=== PATIENT | female | born 2000 | race Caucasian/White ===

== ENCOUNTER 2024-11-25 09:20 | Outpatient (OUT) | payer BC, SELFPAY ==
--- OUTSIDE RECORDS SUMMARY | 2024-11-25 09:27 | XMS_ITS | Clinical Summary ---
Author Organization [facility] Address [address] [place] [address] Phone Care Team Providers Care Director Online Marketing Name Role Phone Unavailable Primary Care Provider Unavailabl e Social History Tobacco Use Types Packs/Day Years Used Date Smoking Tobacco: Never Assessed Comments Unknown Sex and Gender Information Value Date Recorded Sex Assigned at Not on file Legal Sex Female 6:27 PM EST Gender Identity Not on file Sexual Orientation Not on file Last Filed Vital Signs Vital Sign Reading Time Taken Comments Blood Pressure - - Pulse - - Temperature - - Respiratory Rate - - Oxygen Saturation - - Inhaled Oxygen Concentration - - Weight 54.4 kg (120 lb) 03/11/2020 9:07 AM EDT Height 162.6 cm (5' 4 ) 03/11/2020 9:07 AM EDT Body Mass Index 20.6 03/11/2020 9:07 AM EDT Plan of Treatment Not on file
--- OUTSIDE RECORDS SUMMARY | 2024-11-25 09:27 | XMS_ITS | Encounter Summary ---
Author Organization [facility] Address [address] [place] [address] Care Team Providers Care Pigment Pumper Name Role Phone Unavailable Primary Care Provider Unavailabl e Encounter Details Date Type Department Care Team (Late st Contact Info) Description 11/11/2024 Abstract [facility] [address] [facility] [phone] Jean-Pierre Alvarado [address] [place], [facility]11 Social History Tobacco Use Types Packs/Day Years Used Date Smoking Tobacco: Unknown Comments Unknown Sex and Gender Information Value Date Recorded Sex Assigned at Female 10/18/2022 1:41 PM EDT Legal Sex Female 7:24 PM EDT Gender Identity Female 10/18/2022 1:41 PM EDT Sexual Orientation Straight 10/18/2022 1: 41 PM EDT documented as of this encounter Plan of Treatment Upcoming Encounters Date Type Department Care Team (Late st Contact Info) Description 11/25/2024 10:00 AM EDT Initial [facility] [address] [facility] [place] [address] 10/21/2025 8:30 AM EDT Office Visit [facility] [address] [place] [phone] Mckenna Carlin MD [address] [place], [place] [phone] documented as of this encounter Visit Diagnoses Not on filedocumented in this encounter
--- OUTSIDE RECORDS SUMMARY | 2024-11-25 09:27 | XMS_ITS | Clinical Summary ---
Author Organization [facility] Address [address] [facility] [place] [address] Care Team Providers Care Installation Specialist Name Role Phone Unavailable Primary Care Provider Unavailabl e Allergies Active Allergy Reactions Criticality Noted Date Comments Amoxicillin-Pot Clavulanate Nausea Only 024 Levalbuterol 08/26/2023 Other Reaction(s): Unknown Levalbuterol Hcl 08/26/2023 Other Reaction(s): Unknown Medications Azurette 0.15-0.02/0.01 MG (14/10) tablet Act tia dicyclomine (Bentyl) 5 mg split tablet 07/19/2023 Active Lexapro 20 MG tablet Active omeprazole (PriLOSEC) [address] capsule Active spironolactone (Aldactone) 100 MG tabletIndication s:Acne vulgaris Take 1 tablet, by mouth, once daily, 90 day supply 90 tablet 3 10/20/2024 Active Active Problems No known active problems Encounters Date Type Department Care Team Description 11/11/2024 Abstract [facility] [address] [facility] [place] [address] Jean-Pierre Alvarado DO 11/11/2024 Orders Only [facility] [address] [facility] [place] [address] Jean-Pierre Alvarado DO Positive urine test ([facility]); Missed menses 10/20/2024 2:50 PM EDT Office Visit [facility] [address] [facility] [address] [facility] [place] [phone] Mckenna Carlin MD Acne vulgaris 10/20/2024 Bamboo flowsheet [facility] [address] [place] [address] Mckenna Carlin MD 10/20/2024 Travel 09/21/2024 Telephone [facility] [address] [place] [address] Angeles Mansfield MA from Last 3 Months Social History Tobacco Use Types Packs/Day Years Used Date Smoking Tobacco: Unknown Tobacco Cessation:Counseling Given: Not Answered Comments Unknown Sex and Gender Information Value Date Recorded Sex Assigned at Female 10/18/2022 1:41 PM EDT Legal Sex Female 7:24 PM EDT Gender Identity Female 10/18/2022 1:41 PM EDT Sexual Orientation Straight 10/18/2022 1: 41 PM EDT Last Filed Vital Signs Vital Sign Reading Time Taken Comments Blood Pressure 100/64 10/08/2022 12:00 PM EDT Pulse - - Temperature - - Respiratory Rate - - Oxygen Saturation - - Inhaled Oxygen Concentration - - Weight 68 kg (150 lb) 10/08/2022 12:00 PM EDT Height 166.4 cm (5' 5.5 ) 10/08/2022 12:00 PM ED T Body Mass Index 24.58 10/08/2022 12:00 PM EDT Plan of Treatment Upcoming Encounters Date Type Department Care Team (Late st Contact Info) Description 11/25/2024 10:00 AM EDT Initial [facility] [address] [place] [address] [place] [address] 10/21/2025 8:30 AM EDT Office Visit [facility] [address] [place] [address] Mckenna Carlin MD [address] [place] [address] Health Maintenance Due Date Last Done Comments Influenza Vaccine (#1) 2025 03/19/2023, 2021, 04/07/2021 Insurance [facility] [place]ICAID [place]
--- OUTSIDE RECORDS SUMMARY | 2024-11-25 09:27 | XMS_ITS | Encounter Summary ---
Author Organization [facility] Address [address] [place] [address] Care Team Providers Care Court Crier Name Role Phone Unavailable Primary Care Provider Unavailabl e Encounter Details Date Type Department Care Team (Late st Contact Info) Description 11/11/2024 Orders Only [facility] [address] [facility] [place] [address] Jean-Pierre Alvarado, DO [address] [facility] [address] [place], [facility]11 Positive urine test ([facility]); Missed menses Social History Tobacco Use Types Packs/Day Years Used Date Smoking Tobacco: Unknown Comments Unknown Sex and Gender Information Value Date Recorded Sex Assigned at Female 10/18/2022 1:41 PM EDT Legal Sex Female 7:24 PM EDT Gender Identity Female 10/18/2022 1:41 PM EDT Sexual Orientation Straight 10/18/2022 1: 41 PM EDT documented as of this encounter Progress Notes * Cait Holliday LPN - 11/11/2024 9:42 AM EDT 0942am Called patient and notified her of US appointment that is scheduled for 11/25/24 @ 9:30am. Orders faxed to [facility] scheduling. Cait Holliday LPN documented in this encounter Plan of Treatment Upcoming Encounters Date Type Department Care Team (Late st Contact Info) Description 11/25/2024 10:00 AM EDT Initial [facility] [address] [place] [address] [place] [address] 10/21/2025 8:30 AM EDT Office Visit [facility] [address] [facility] [address] [place] [address] Mckenna Carlin MD [address] [address] Scheduled Orders Name Type Priority Associated Diagnoses Orde r Schedule US OB transvaginal Imaging Routine Positive urine test ([facility]) Missed menses Expected: 11/11/2024, Expires: 02/11/2025 documented as of this encounter Visit Diagnoses Diagnosis Positive urine test ([facility]) Missed menses documented in this encounter
--- NOTE | 2024-11-25 09:29 | US_ITS ---
The [address] [address] Patient Name: VIJAY POE MRN: [id number] date: 2000 Sex: F Assigned Patient Location: Current Patient Location: Accession/Order Number: [id number] Exam Date: 11/25/2024 11:00 Report Date: 11/25/2024 11:03 At the request of: ROBBI DUARTE DO Procedure: US OB transvaginal ULTRASOUND OB TRANSVAGINAL CLINICAL DATA: Positive urine test. COMPARISON: None Evaluation was performed utilizing a transvaginal approach. There is a gestational sac within the uterus. This contains a yolk sac and pole. The crown-rump length measurement of 1.5 cm correlates with an ultrasound age of 7 weeks 6 days +/- 0 weeks 5 days. The estimated date of delivery is July 08, 2025. There is cardiac activity with heart rate of 161 bpm. The cervix is closed with estimated length of 3.7 cm. Both ovaries are seen. The right measures 2.3 x 2.5 x 2.3 cm . The left ovary measures 1.1 x 1.3 x 1.5 cm. A corpus luteum is seen within the right ovary measuring approximately 12 x 12 x 6 mm in size. There are also small bilateral ovarian follicles. There is documentation of ovarian blood flow. No free fluid is noted. US/US OB transvaginal IMPRESSION: SINGLE LIVE INTRAUTERINE GESTATION WITH ULTRASOUND AGE OF 7 WEEKS 6 DAYS Impression dictated by: Shavon Forbes M.D. 11/25/2024 11:03 AM Dictation Location: [place] [address] Electronically authenticated by: [id number] Y Date: 11/25/2024 11:03
== END 2024-11-25 09:21 | disposition home or self-care (01) ==
LOC: US 09:25
PROVIDERS: PCP Student in an Organized Health Care Education/Training Program; Visit Provider Obstetrics & Gynecology
DX: Z32.01 Encounter for pregnancy test, result positive (principal); Z3A.01 Less than 8 weeks gestation of pregnancy
CPT/HCPCS: 76817

== ENCOUNTER 2024-12-07 16:56 | Outpatient (OUT) | payer BC, SELFPAY ==
[2024-12-07 17:20] LABS: Hematocrit 37.5 % (36.0-48.0); Hemoglobin 13.2 g/dL (12.0-16.0); Immature Granulocytes Abs Auto 0.03 10^3/uL (0.00-0.03); Immature Granulocytes Pct Auto 0.2 % (0.0-0.5); Lymphocytes Absolute Auto 3.2 10^3/uL (1.2-3.8); Mean Corpuscular HGB Conc 35.2 g/dL (29.9-35.2); Mean Corpuscular Hemoglobin 29.4 pg (26.7-34.0); Mean Corpuscular Volume 83.5 fL (81.0-99.0); Platelet Count 309 10^3/uL (150-450); Red Blood Count 4.49 10^6/uL (4.20-5.40); White Blood Count 12.7 10^3/uL (4.0-11.0)
[2024-12-07 18:02] LABS: Cannabinoid Screen Urine NEGATIVE (NEGATIVE); Methamphetamines Screen Urine NEGATIVE (NEGATIVE); Tricyclic Antidepressant Urine NEGATIVE (NEGATIVE)
[2024-12-09 08:08] LABS: Rubella Antibodies, IgG 1.45 index (Immune >0.99)
[2024-12-09 12:09] LABS: Rapid Plasma Reagin, Quant Non Reactive titer (NonRea<1:1)
== END 2024-12-07 16:57 | disposition home or self-care (01) ==
PROVIDERS: PCP Student in an Organized Health Care Education/Training Program; Visit Provider Obstetrics & Gynecology
DX: Z34.01 Encounter for supervision of normal first pregnancy, first trimester (principal); N92.6 Irregular menstruation, unspecified
CPT/HCPCS: 36415; 80307; 83036; 85025; 86592; 86762; 86803; 86850; 86900; 86901; 87086; 87340; 87389

== ENCOUNTER 2024-12-31 12:50 | Outpatient (OUT) | payer BC, OTHER, SELFPAY ==
--- NOTE | 2024-12-31 12:52 | US_ITS ---
[address] [address] Patient Name: VIJAY POE MRN: [id number] date: 2000 Sex: F Assigned Patient Location: US Current Patient Location: Accession/Order Number: [id number] Exam Date: 12/31/2024 13:48 Report Date: 12/31/2024 13:52 At the request of: ROBBI DUARTE DO Procedure: US OB cervical length Cervical length/placenta ultrasound. Reason for exam: Low lying placenta, vaginal bleeding. COMPARISON: Ultrasound 11/25/2024. TECHNIQUE: Transabdominal imaging of the gravid uterus was obtained. FINDINGS: Cervical length measures 4 cm no evidence of funneling. Placenta is posterior in location with a presumed placental luna present measuring 3.3 x 2.1 x 0.7 cm. Placenta is approximately 1.1 cm from the internal os. heart rate 1 59 bpm. US/US OB cervical length IMPRESSION: Cervical length measures 4 cm. no evidence of funneling. The placenta is posterior in location and approximately 1.1 cm from internal os. There is a presumed placental luna noted. Attention on follow-up is suggested. Impression dictated by: Niranjan Abraham Jr., D.O. 12/31/2024 1:52 PM Dictation Location: [employer] Electronically authenticated by: [id number] Y Date: 12/31/2024 13:52
--- NOTE | 2024-12-31 12:52 | US_ITS ---
[address] [address] Patient Name: VIJAY POE MRN: [id number] date: 2000 Sex: F Assigned Patient Location: US Current Patient Location: Accession/Order Number: [id number] Exam Date: 12/31/2024 13:48 Report Date: 12/31/2024 13:52 At the request of: ROBBI DUARTE DO Procedure: US OB cervical length Cervical length/placenta ultrasound. Reason for exam: Low lying placenta, vaginal bleeding. COMPARISON: Ultrasound 11/25/2024. TECHNIQUE: Transabdominal imaging of the gravid uterus was obtained. FINDINGS: Cervical length measures 4 cm no evidence of funneling. Placenta is posterior in location with a presumed placental luna present measuring 3.3 x 2.1 x 0.7 cm. Placenta is approximately 1.1 cm from the internal os. heart rate 1 59 bpm. US/US OB placenta IMPRESSION: Cervical length measures 4 cm. no evidence of funneling. The placenta is posterior in location and approximately 1.1 cm from internal os. There is a presumed placental luna noted. Attention on follow-up is suggested. Impression dictated by: Niranjan Abraham Jr., D.O. 12/31/2024 1:52 PM Dictation Location: [employer] Electronically authenticated by: [id number] Y Date: 12/31/2024 13:52
== END 2024-12-31 12:51 | disposition home or self-care (01) ==
LOC: US 12:50
PROVIDERS: PCP Student in an Organized Health Care Education/Training Program; Visit Provider Obstetrics & Gynecology
DX: O44.41 Low lying placenta NOS or without hemorrhage, first trimester (principal); O20.9 Hemorrhage in early pregnancy, unspecified
CPT/HCPCS: 76815; 76817

== ENCOUNTER 2025-02-16 19:30 | Outpatient (REF) | payer BC, OTHER, SELFPAY ==
[2025-02-23 12:08] LABS: Age Gdln ACOG Testing Note (.); IGP, rfx Aptima HPV ASCU Note (.)
== END 2025-02-16 19:31 | disposition home or self-care (01) ==
LOC: LAB 19:30
PROVIDERS: PCP Student in an Organized Health Care Education/Training Program; Visit Provider Obstetrics & Gynecology
DX: Z34.92 Encounter for supervision of normal pregnancy, unspecified, second trimester (principal); Z3A.19 19 weeks gestation of pregnancy
CPT/HCPCS: 88175

== ENCOUNTER 2025-02-26 09:37 | Outpatient (OUT) | payer BC, OTHER, SELFPAY | END 2025-02-26 09:38 | disposition home or self-care (01) | PROVIDERS: PCP Student in an Organized Health Care Education/Training Program; Visit Provider Obstetrics & Gynecology | DX: Z34.92 Encounter for supervision of normal pregnancy, unspecified, second trimester (principal); Z3A.19 19 weeks gestation of pregnancy | CPT/HCPCS: 36415; 82105 ==

== ENCOUNTER 2025-04-09 09:03 | Outpatient (OUT) | payer BC, OTHER, SELFPAY ==
--- OUTSIDE RECORDS SUMMARY | 2023-06-14 04:15 | XMS_ITS | Continuity of Care Document ---
Author Organization [facility] Address [address] [place] [address] Phone Care Team Providers Care Mark Up Designer Name Role Phone James Fritz Unavailable Unavailable Procedures Procedure Date IMMUNIZATION ADMIN CHICKEN POX VACCINE, SC IMMUNIZATION ADMIN CHICKEN POX VACCINE, SC IMMUNIZATION ADMIN FLU VAC NO PRSV 4 HYUN 3 YRS+ ROUTINE VENIPUNCTURE COVID-19 Antigen Test ROUTINE VENIPUNCTURE ROUTINE VENIPUNCTURE Advance Directives Directive Yes / No Effective Date File Name No Information Encounters Encounter Description Practice Location Reason(s) For Visit Diagnoses Date Provider Providers Copied on Encounter [facility], [address] [place] [address], [id number], [place] tel:[phone] [facility] No Information Warren Grady. [address] [place], [place], [id number], [place]. tel:[phone] [facility], [address] [place] [address], [id number], [place] tel:[phone] [facility] No Information Warren Grady. [address] [place], [place], [id number], [place]. tel:[phone] [facility], [address] [place] [address], [id number], [place] tel:[phone] [facility] No Information Warren Grady. [address] [place], [place], [id number], [place]. tel:[phone] [facility], [address] [place], [place], [id number], [place] tel:[phone] [facility] Lab draw (chief complaint) No Information Warren Grady. [address] [place], [place], [id number], [place]. tel:[phone] [facility], [address] [place], [place], [id number], [place] tel:[phone] COVID [facility] Encounter for screening for COVID-19 Warren Grady. [address] [place], [place], [id number], [place]. tel:[phone] [facility], [address], [place], [id number], [place] tel:[phone] [facility] Lab draw (chief complaint) Encounter for antibody response examination Warren Grady. [address], [place], [id number], [place]. tel:[phone] [facility], [address], [place], [id number], [place] tel:[phone] [facility] lab test (chief complaint) Encounter for screening for respiratory tuberculosis Warren Grady. [address], [place], [id number], [place]. tel:[phone] Family History Family Member Type Diagnosis Age At Onset No Information Immunizations Vaccine Date Status Comments Varicella administered Source: New Imm unization Record Varicella administered Source: New Imm unization Record Spikevax 12y+ refused Source: New Im munization Record Flulaval/ Fluarix administered Source: Ne w Immunization Record Tdap administered Source: Other R egistry influenza, injectable, quadrivalent administered Source: Other Regist ry influenza, injectable, quadrivalent administered Source: Other Regist ry IPV administered Source: Other R egistry DTaP administered Source: Other R egistry MMR administered Source: Other R egistry MMR administered Source: Other R egistry Hib (PRP-T) administered Source: Other R egistry DTaP administered Source: Other R egistry varicella administered Source: Other R egistry Pneumococcal conjugate PCV 13 administere d Source: Other Registry IPV administered Source: Other R egistry Hib, unspecified formulation administered Source: Other Registry DTaP, unspecified formulation administere d Source: Other Registry pneumococcal conjugate PCV 7 administered Source: Other Registry IPV administered Source: Other R egistry Hib, unspecified formulation administered Source: Other Registry Hep B, adolescent or pediatric administer ed Source: Other Registry DTaP, unspecified formulation administere d Source: Other Registry pneumococcal conjugate PCV 7 administered Source: Other Registry IPV administered Source: Other R egistry Hib (PRP-OMP) administered Source: Other Registry Hep B, adolescent or pediatric administer ed Source: Other Registry DTaP, unspecified formulation administere d Source: Other Registry pneumococcal conjugate PCV 7 administered Source: Other Registry Hep B, adolescent or pediatric administer ed Source: Other Registry Payers Payer name Insurance type Covered libertarian ID Authoriza tikoyd(s) Gonzalez BL [id number] Gonzalez BL [id number] Gonzalez BL [id number] Gonzalez BL [id number] Social History Type Description Quantity Date Captured Comments Alcohol Use Details Unknown Caffeine Use Details Unknown Tobacco Use Status No Information Smoking Status No Information Sex Female Sexual Orientation Straight or heterosexual Gender Identity Female Chief Complaint And Reason For Visit No Information Reason For Referral Reason For Referral No Information Plan Of Treatment Date Type Action Status Goal Unhealthy drug use screening . Due on due Goal PAP. Due on due Goal Tdap Vaccine. Due on 2032 due Goal Influenza vaccine. Due on due Goal PRAPARE ASSESSMENT. Due on due Goal Hep A. Due on du e Goal Tdap due Goal Depression screening. Due on due Goal RLP. Due on due Goal Hepatitis C screening. Due o n due Goal Influenza vaccine. Due on due Goal Unhealthy drug use screening . Due on due Goal Tdap. Due on due Goal Hepatitis C screening. Due o n due Goal Hep A. Due on du e Goal Depression screening. Due on due Goal PRAPARE ASSESSMENT. Due on due Goal RLP. Due on due Goal Tdap Vaccine. Due on 2022 due Goal Unhealthy drug use screening . Due on due Goal Tdap. Due on due Goal RLP. Due on due Goal Influenza vaccine. Due on Oc due Goal Tdap Vaccine. Due on 2022 due Goal Hepatitis C screening. Due o n due Goal Depression screening. Due on due Goal PRAPARE ASSESSMENT. Due on O due Goal Hep A. Due on du e Goal Hep A. Due on du e Goal Influenza vaccine. Due on Oc due Goal Tdap Vaccine. Due on 2022 due Goal Hepatitis C screening. Due o n due Goal Tdap. Due on due Goal PRAPARE ASSESSMENT. Due on O due Goal Unhealthy drug use screening . Due on due Goal RLP. Due on due Goal Depression screening. Due on due Goal Tdap Vaccine. Due on 2022 due Goal Tdap. Due on due Goal RLP. Due on due Goal Hep A. Due on du e Goal PRAPARE ASSESSMENT. Due on O due Goal Unhealthy drug use screening . Due on due Goal Depression screening. Due on due Goal Hepatitis C screening. Due o n due Goal Influenza vaccine. Due on Oc due Goal Depression screening. Due on due Goal Tdap Vaccine. Due on 2022 due Goal Hep A. Due on du e Goal Tdap. Due on due Goal Influenza vaccine. Due on Se p due Goal PRAPARE ASSESSMENT. Due on S due Goal RLP. Due on due Goal Hep A. Due on du e Goal Influenza vaccine. Due on Ma r due Goal PRAPARE ASSESSMENT. Due on M due Goal Tdap Vaccine. Due on 2022 due Goal RLP. Due on due Goal Tdap. Due on due Goal Depression screening. Due on due History Of Present Illness Encounter Date Complaint History Of Prese nt Illness Lab draw Labs drawn x1 RA C. 2x2 and bandage applied. //KARIN Mathur Lab draw Labs drawn x1 RA C. 2x2 and bandage applied. //KARIN Mathur lab test Pt here today fo r employee TB test. Labs obtained successfully x1 attempt in R AC. Pt tolerated well, voices no complaints at this time. -Helio. Functional Status Date Functional Assessmen t No Information Instructions Date Instruction Additional Infor mation No Information Assessments Type Assessment Date No Information Patient Care Teams Name Effective Dates (start - stop) Status Members No Information
--- OUTSIDE RECORDS SUMMARY | 2025-04-09 09:07 | XMS_ITS | Encounter Summary ---
Author Organization [facility] Address [address] [place] [place] [address] Care Team Providers Care Foot Orthopedist Name Role Phone Unavailable Primary Care Provider Unavailabl e Encounter Details DateTypeDepartmentCare Team (Latest Contact Info)Bfheqkhzlut74/11/2025bstract JORDON STRATTON [address] [facility] [address] Oanh Vasquez MA Social History Tobacco UseTypesPacks/DayYears UsedDateSmoking Tobacco: UnknownEstimated Date of AepzyanoEwunmyydDte63/12/2026Based on Ultrasound, HR 161Sex and Gender InformationValueDate RecordedSex Assigned at WltwrOfmjvt30/25/2023 1:41 PM EDT Legal MhkYkqunc11/15/2023 7:24 PM EDTGender SjuyqyjzArahcw96/25/2023 1:41 PM EDT Sexual MbqaakfjifkNyiyyhua66/25/2023 1:41 PM EDTdocumented as of this encounter Plan of Treatment DateTypeDepartmentCare Team (Latest Contact Info)Wczwbmbixxe33/24/2025 2:10 PM ESTRoutine [facility] [address] [facility] [address] Jean-Pierre Alvarado DO [address] [facility] [address] [place], [place] [id number] 10/21/2025 8:30 AM EDTOffice Visit [facility] [address] [place] [address] [place] [address] Mckenna Carlin MD [address] [facility] [address] [place] [address] documented as of this encounter Visit Diagnoses Not on filedocumented in this encounter
--- OUTSIDE RECORDS SUMMARY | 2025-04-09 09:07 | XMS_ITS | Clinical Summary ---
Author Organization [facility] Address [address] [place] [address] Phone Care Team Providers Care Embalmer/Funeral Director Name Role Phone Unavailable Primary Care Provider Unavailabl e Social History Tobacco UseTypesPacks/DayYears UsedDateSmoking Tobacco: Never Assessed CommentsUnknownSex and Gender InformationValueDate RecordedSex Assigned at Not on fileLegal QcgAmuxsp89/25/2022 6:27 PM ESTGender IdentityNot on fileSexual OrientationNot on file Last Filed Vital Signs Vital SignReadingTime TakenCommentsBlood Pressure--Pulse--Temperature-- Respiratory Rate--Oxygen Saturation--Inhaled Oxygen Concentration--Ipsjyn20.4 kg (120 lb)03/11/2020 9:07 AM KZRCkotbk947.6 cm (5' 4 )03/11/2020 9:07 AM EDTBody Mass Index20. 9:07 AM EDT Plan of Treatment Not on file
--- OUTSIDE RECORDS SUMMARY | 2025-04-09 09:07 | XMS_ITS ---
Author Organization [facility] (ClinicalSummary Clone) Address Unknown Care Team Providers Care Shoe Parts Molder Name Role Phone Unavailable Primary Care Physician Unavailab le Results * [UNITY] ANEUPLOIDY NIPT Performed by: [employer] Value Range Date Fraction 8.2% 12/14/2024 04:17 am UTCRh(D) NIPTRhD CCGFPTTL75/21/2025 04:17 am UTCSex Chromosome AneuploidyNOT OLQGKUOW52/21/2025 04:17 am UTCMonosomy XLOW RISK <1 in , 04:17 am UTCTrisomy 13LOW RISK <1 in , 04:17 am UTCTrisomy 18LOW RISK <1 in , 04:17 am UTCTrisomy 21LOW RISK <1 in , 04:17 am UTCFetal OynAYVW4012/14/2024 04:17 am UTCPregnancy ExbqgyugmORGNQAFJA12/21/2025 04:17 am UTCFor detailed report, see PDFSee PDF 12/14/2024 04:17 am UTC12/14/2024 04:17 am UTC Social History Observation Value Start Date End Date
--- OUTSIDE RECORDS SUMMARY | 2025-04-09 09:08 | XMS_ITS | Clinical Summary ---
Author Organization [employer] [facility] tem Address [facility] [id number] [address] [place] [address] Care Team Providers Care Accreditation Specialist Name Role Phone Unavailable Primary Care Provider Unavailabl e Allergies Active AllergyReactionsCriticalityNoted DateCommentsAmoxicillin-Pot Clavulanate Bfifib1312/31/20249388Wckabemdzvts66/07/2025Levalbuterol Hcl12/31/2024 Medications MedicationSigDispense QuantityRefillsLast FilledStart DateEnd DateStatus ondansetron ODT (ZOFRAN ODT) 4 mg disintegrating tablet Dissolve 1 tablet (4 mg total) on tongue every 8 (eight) hours as needed for nausea or vomiting.Active escitalopram (LEXAPRO) 20 mg tablet Take 1 tablet (20 mg total) by mouth in the morning.Active vit 50-pndr-sjqnc-dha 27mg iron- 800 mcg-250 mg capsule Take 1 tablet by mouth in the morning.Active metroNIDAZOLE (FLAGYL) 500 mg tablet Take 1 tablet (500 mg total) by mouth 3 (three) times a day.Active Encounters DateTypeDepartmentCare McwyPebvtfxtygr98/06/2025Orders Only [facility] [place] [address] 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, oimwrpkpag96/26/2025 11:00 AM EDTOffice Visit Maternal- Medicine at [facility] [address] [place] [address] Adeline Castrejon MD 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); History of MRSA infection; 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, antepartum; Anxiety disorder affecting , antepartum; 20 weeks gestation of cmqjrtkat94/26/2025 9:29 AM EDT - 02/19/2025 11:59 PM EDT Hospital Encounter [facility] - [facility] [address] [place] [phone] Screening, , for anatomic survey Discharge Disposition: Home02/19/2025Orders Only Maternal- Medicine at [facility] [address] [place] [phone] Meri Key LPN 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); 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, zzigzmcjrp66/24/2025Travelfrom Last 3 Months Family History Medical HistoryRelationNameCommentsCancerMaternal GrandmotherbreastAutismNeg Hx Autoimmune diseaseNeg HxBleeding DisorderNeg HxClotting disorderNeg Hx Developmental delayNeg HxDiabetesNeg HxDown syndromeNeg HxHeart defectNeg Hx HypertensionNeg HxSudden deathNeg HxRelationNameStatusCommentsMaternal Grandmother Social History Tobacco UseTypesPacks/DayYears UsedDateSmoking Tobacco: NeverPassive Smoke Exposure: CurrentSmokeless Tobacco: Never Tobacco Cessation:Counseling Given: Not Answered Alcohol UseStandard Drinks/WeekCommentsNot Currently0 (1 standard drink = 0.6 oz pure alcohol)Hunger ScreeningAnswerDate RecordedWithin the past 12 months we worried whether our food would run out before we got money to buy more.Never True02/19/2025Within the past 12 months the food we bought just didn't last and we didn't have money to get more.Never True02/19/2025Estimated Date of CgzxepgzIumgsxucMid46/12/2026ased on UltrasoundSex and Gender InformationValue Date RecordedSex Assigned at BirthNot on fileLegal ZtoKeexak52/05/2025 3:49 PM EDTGender IdentityNot on fileSexual OrientationNot on file Last Filed Vital Signs Vital SignReadingTime TakenCommentsBlood Ohjgujgp282/69002/19/2025 9:52 AM EDT Mbxhm016402/19/2025 9:52 AM EDTTemperature--Respiratory Rate--Oxygen Saturation-- Inhaled Oxygen Concentration--Ztgwre59 kg (176 lb 6.4 oz)02/19/2025 9:52 AM EDT Zaqpqy002.1 cm (5' 5 )02/19/2025 9:52 AM EDTBody Mass Index29.35002/19/2025 9:52 AM EDT Plan of Treatment DateTypeDepartmentCare Team (Latest Contact Info)Lceafbuviuh49/11/2025 2:15 PM ESTAppointment [facility] [place] [address] [facility] [address] [place] [address] Health MaintenanceDue DateLast DoneCommentsDepression Xivbpldte56/16/2014dult BMI Follow Up Plan2020COVID-19 Vaccine ( season)2025 08/05/2021, 07/08/2021Influenza Uvwombd36, 03/09/2022, 04/07/2021SV ( or age 60+ yrs) (1 - Risk 1-dose series) 05/13/2025dult BMI Gbgkqklrm37Tobacco Yopmwzktq28/26/2026 02/19/2025Pap Smear8002/16/2025DTaP,Tdap and Td Vaccines (7 - Td or Tdap)/10/2022, 09/17/2007, 09/26/2005, Additional history exists Medical Devices Not on file Procedures Procedure NamePriorityDate/TimeAssociated DiagnosisCommentsUS MFM OB FOLLOW-UP, 1 UEVPRIvkpgzg34/06/2025 3:06 PM EST 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 Anatomical RegionLateralityModalityOB-GYNUltrasoundSpecimen (Source)Anatomical Location / LateralityCollection Method / VolumeCollection TimeReceived Time 04/01/2025 3:14 PM EST Narrative 04/02/2025 3:27 PM EST NAME: ??LUI LINARES : 2000 SEX: F Accession Number: [id number] ORDERING PHYSICIAN: ADELINE CASTREJON REFERRING PHYSICIAN: ROBBI DUARTE Coding Procedures ? 32206: Ultrasound, uterus, real time with image documentation, follow up,transabdominal ? 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 History OB History ? 1. Para 0 ? [id number] Current Cell free DNA ?low risk analysis Maternal Assessment Physical Exam ??Height 165 cm, 5 ft 5 in. Weight 82 kg, 181 lb. Initial weight 80 kg, 176 lb. BMI 30.12 kg/m??. Initial ? BMI 29.29 kg/m??. Weight gain 2 kg, 5 lb Method Transabdominal ultrasound examination. View: Suboptimal view: limited by position. Baird . Number of fetuses: 1 Dating LMP on: ?09/25/2024 GA by LMP ?26 w + 6 d PETE by LMP: ?07/02/2025 Previous Ultrasound on: ?11/25/2024 Type of prior assessment: ?GA GA at prior assessment date ?7 w + 6 d GA by previous U/S ? 26 w + 0 d PETE by previous Ultrasound: ?07/08/2025 Ultrasound examination on: ? 04/01/2025 GA by U/S based upon: ??AC, BPD, Femur, HC GA by U/S ?26 w + 4 d PETE by U/S: ?07/04/2025 Assigned: ?based on ultrasound (GA), selected on 02/19/2025 Assigned GA (weeks days) ? 26 w + 0 d Assigned PETE: ??07/08/2025 General Evaluation Cardiac activity Present. FHR 141 bpm. Presentation: breech Placenta: Placental site: posterior, previously documented away from cervical os Umbilical cord: Cord vessels: 3 vessel cord. Insertion site: documented previously Amniotic fluid: Amount of AF: normal amount. MVP 4.1 cm Biometry Standard BPD ?63.4 mm 25w 5d 29% Hadlock OFD 94.4 mm 30w 3d >99% Mary HC ? 254.7 mm ?27w 5d 81% Hadlock Cerebellum tr ??29.2 mm 25w 4d 34% Hill AC ? 231.0 mm ?27w 3d 83% Hadlock Femur ??45.8 mm 25w 1d 15% Hadlock Humerus ?43.9 mm 26w 1d 48% Mary HC / AC ?1.10 EFW ?955 g ?64% Hadlock EFW (lb) ? 2 lb EFW (oz) ? 2 oz EFW by: ?Hadlock ([id number]-FX-FL) Extended Tibia ??42.6 mm 26w 3d 60% Mary Alarm Adjuster ? 4.1 mm CM ? 6.6 mm ?? 59% Nicolaides Head / Face / Neck Cephalic index 0.67 <1% Nicolaides Nasal bone: ?documented previously Extremities / Bony Struc FL / BPD ? 0.72 FL / HC ?0.18 FL / AC ?0.20 Other Structures FHR ?141 bpm Anatomy The following structures appear normal: Head/Neck: Cranium. Lateral ventricles. Cavum septi pellucidi. Cerebellum. Cisterna magna. Parenchyma. Heart/Thorax: 4-chamber view. RVOT view. LVOT view. Aortic arch view. Bicaval view. Interventricular septum. Great ? vessels. Cardiac position. Cardiac axis. Cardiac size. Cardiac rhythm. ? Right lung. Left lung. Diaphragm. Abdomen: Stomach. Kidneys. Bladder. Small bowel. Large bowel. Spine: Cervical spine. Thoracic spine. Lumbar spine. The following structures could not be adequately visualized: Heart / Thorax Ductal arch view. Spine ??Sacral spine. The following structures were documented previously: Head / Neck ?Choroid plexus. Midline falx. Vermis. ? Neck. Nuchal fold. Face: Lips. Profile. Nose. Nasal bone. Maxilla. Mandible. Orbits. Heart / Thorax 3-vessel view. 6-vxdyih-tlhryyz view. Situs. Abdomen ?Abdom. wall. Cord insertion. Right renal artery. Left renal artery. Genitals. Extremities/Skeleton: Right upper arm. Right forearm. Right hand. Left upper arm. Left forearm. Left hand. Right upper leg. ? Right lower leg. Right foot. Left upper leg. Left lower leg. Left foot. Maternal Structures Uterus Visualized Cervix Suboptimal ? Approach - Transabdominal Right Ovary ?Not visualized Left Ovary ? Not visualized Cul de Sac ? Suboptimal Impression Single live intrauterine consistent with 26w 0d with an PETE of 07/08/2025. Normal growth. EFW measures at the 64%, AC measures at the 83%. Amniotic fluid MVP measures 4.1 cm. Recommendations Please see [facility] recommendations from prior clinical and/or ultrasound report documentation. The patient is scheduled in four to six week(s) to complete anatomic survey. Subsequent follow up or other follow up as clinically determined by primary OB provider unless otherwise specified by M. Results forwarded to ordering provider so they can follow up with the patient as necessary. 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 History OB History 1. Para 0 [id number] Current Cell free DNA low risk analysis Maternal Assessment Physical Exam Height 165 cm, 5 ft 5 in. Weight 82 kg, 181 lb. Initialweight 80 kg, 176 lb. BMI 30.12 kg/m??. Initial BMI 29.29 kg/m??. Weight gain 2 kg, 5 lb Method Transabdominal ultrasound examination. View: Suboptimal view: limited byfetal position. Baird . Number of fetuses: 1 Dating LMP on: 09/25/2024 GA by LMP 26 w + 6 d PETE by LMP: 07/02/2025 Previous Ultrasound on: 11/25/2024 Type of prior assessment: GA GA at prior assessment date 7 w + 6 d GA by previous U/S 26 w + 0 d PETE by previous Ultrasound: 07/08/2025 Ultrasound examination on: 04/01/2025 GA by U/S based upon: AC, BPD, Femur, HC GA by U/S 26 w + 4 d PETE by U/S: 07/04/2025 Assigned: based on ultrasound (GA), selected on 02/19/2025 Assigned GA (weeks days) 26 w + 0 d Assigned PETE: 07/08/2025 General Evaluation Cardiac activity Present. FHR 141 bpm. Presentation: breech Placenta: Placental site: posterior, previously documented away fromcervical os Umbilical cord: Cord vessels: 3 vessel cord. Insertion site: documented previously Amniotic fluid: Amount of AF: normal amount. MVP 4.1 cm Biometry Standard BPD 63.4 mm 25w 5d 29% Hadlock OFD 94.4 mm 30w 3d >99% Mary HC 254.7 mm 27w 5d 81% Hadlock Cerebellum tr 29.2 mm 25w 4d 34% Hill AC 231.0 mm 27w 3d 83% Hadlock Femur 45.8 mm 25w 1d 15% Hadlock Humerus 43.9 mm 26w 1d 48% Mary HC / AC 1.10 EFW 955 g 64% Hadlock EFW (lb) 2 lb EFW (oz) 2 oz EFW by: Hadlock ([id number]-OG-ZH-FL) Extended Tibia 42.6 mm 26w 3d 60% Mary Alarm Adjuster 4.1 mm CM 6.6 mm 59% Nicolaides Head / Face / Neck Cephalic index 0.67 <1% Nicolaides Nasal bone: documented previously Extremities / Bony Struc FL / BPD 0.72 FL / HC 0.18 FL / AC 0.20 Other Structures FHR 141 bpm Anatomy The following structures appear normal: Head/Neck: Cranium. Lateral ventricles. Cavum septi pellucidi. Cerebellum. Cisterna magna. Parenchyma. Heart/Thorax: 4-chamber view. RVOT view. LVOT view. Aortic arch view.Bicaval view. Interventricular septum. Great vessels. Cardiac position. Cardiac axis. Cardiac size. Cardiacrhythm. Right lung. Left lung. Diaphragm. Abdomen: Stomach. Kidneys. Bladder. Small bowel. Large bowel. Spine: Cervical spine. Thoracic spine. Lumbar spine. The following structures could not be adequately visualized: Heart / Thorax Ductal arch view. Spine Sacral spine. The following structures were documented previously: Head / Neck Choroid plexus. Midline falx. Vermis. Neck. Nuchal fold. Face: Lips. Profile. Nose. Nasal bone. Maxilla. Mandible. Orbits. Heart / Thorax 3-vessel view. 7-gwqvlg-difksah view. Situs. Abdomen Abdom. wall. Cord insertion. Right renal artery. Left renalartery. Genitals. Extremities/Skeleton: Right upper arm. Right forearm. Right hand. Leftupper arm. Left forearm. Left hand. Right upper leg. Right lower leg. Right foot. Left upper leg. Left lower leg. Leftfoot. Maternal Structures Uterus Visualized Cervix Suboptimal Approach - Transabdominal Right Ovary Not visualized Left Ovary Not visualized Cul de Sac Suboptimal Impression Single live intrauterine consistent with 26w 0d with an PETE of 07/08/2025. Normal growth. EFW measures at the 64%, AC measures at the 83%. Amniotic fluid MVP measures 4.1 cm. Recommendations Please see [facility] recommendations from prior clinical and/or ultrasoundreport documentation. The patient is scheduled in four to six week(s) to complete anatomicsurvey. Subsequent follow up or other follow up as clinically determined byprimary OB provider unless otherwise specified by [facility]. Results forwarded to ordering provider so they can follow up with thepatient as necessary. Authorizing ProviderResult TypeResult StatusIra Cash ATWOODKriss US ORDERABLES Final Result * Unlisted Lab Test (02/19/2025)Specimen (Source)Anatomical Location / LateralityCollection Method / VolumeCollection TimeReceived TimeBlood (Arm) 02/19/2025 Narrative Authorizing ProviderResult TypeResult StatusAdeline ALLEN BLOOD ORDERABLES Final ResultPerforming OrganizationAddressCity/State/ZIP CodePhone Number MANUALLY TRANSCRIBED RESULTS from Last 3 Months Insurance
--- OUTSIDE RECORDS SUMMARY | 2025-04-09 09:08 | XMS_ITS | Clinical Summary ---
Author Organization [facility] Address [address] [place] [address] Care Team Providers Care Ager Tender Name Role Phone Unavailable Primary Care Provider Unavailabl e Allergies Active AllergyReactionsCriticalityNoted DateCommentsAmoxicillin-Pot Clavulanate Nausea Only08/26/20234858Dyglqdljqzbi90/01/2024 Xopenex Levalbuterol Hcl08/26/2023 Other Reaction(s): Unknown Medications MedicationSigDispense QuantityRefillsLast FilledStart DateEnd DateStatus Lexapro 20 MG tablet Active MV-Min-Fe Fum-FA-DHA ( 1 PO) Take by mouthActive clindamycin (Cleocin T) 1 % lotion Indications:Acne vulgarisApply thin layer to face, once daily in the morning, 30 day supply 60 mL 1105Active magnesium oxide (Mag-Ox) 400 MG tablet Indications:Leg cramps in ([facility])Take 1 tablet (400 mg) by mouth Daily 30 tablet 515Active ondansetron (Zofran) 4 MG tablet Indications:Nausea and vomiting in ([facility])Take 2 tablets (8 mg) by mouth every 6 (six) hours if needed for nausea or vomiting 60 tablet /51Expired Active Problems ProblemNoted DateDiagnosed Date19 weeks gestation of ([facility]) 02/16/2025Second trimester fetus ([facility])02/16/2025Estimated Date of OdjbohlrDfgfskywTdn66/12/2026ased on Ultrasound, HR 161 Encounters DateTypeDepartmentCare GqcjSnrsbwztfeo97/11/2025bstract [facility] [address] [place] [address] Oanh Vasquez MA 04/02/2025Orders Only [facility] [address] [facility] [id number] Korin Talbert, DO 03/22/2025Telephone [facility] [place] [address] [place] [address] Gunjan Lee MA 03/17/2025 11:30 AM EDTRoutine [facility] [address] [place] [address] Robbi Alvarado, DO 23 weeks gestation of ([facility]); Second trimester fetus ([facility]); Diabetes mellitus screening; Leg cramps in ([facility])03/17/2025amboo flowsheet [facility] [place] [address] [place] [address] Robbi Alvarado, DO 03/04/2025Orders Only [facility] [place] [facility] [address] [place] [address] Eunice Ramos LPN 02/26/2025linisync Result Encounter [facility] External Department Unsolicited Robbi Alvarado, DO 02/19/2025bstract [facility] [place] [facility] [address] [place] [address] Robbi Alvarado, DO 02/17/2025Telephone [facility] [place] [address] [place] [address] Robbi Alvarado, DO 02/16/2025 2:10 PM EDTRoutine [facility] [address] [place] [address] Robbi Alvarado, DO 19 weeks gestation of ([facility]); Second trimester fetus ([facility]); Screening, , for anatomic survey ([facility])02/16/2025linisync Result Encounter [facility] External Department Unsolicited Robbi Alvarado, 02/16/2025External Result Encounter [facility] External Department Unsolicited Robbi Alvarado, DO 02/16/2025amboo flowsheet [facility] [address] [place] [address] Robbi Alvarado, 02/15/2025Telephone [facility] [address] [place] [address] Robbi Alvarado, 02/05/2025 11:20 AM EDTOffice Visit [facility] [address] [place] [address] Chen Fuentes PA Acne vulgaris (Primary Dx)02/05/2025amboo flowsheet [facility] [address] [place] [address] Chen Fuentes PA 02/05/20253609Qhzoln36/05/3623Yijylr66/27/2025 11:10 AM EDTRoutine NOM[facility] [address] [place] [address] Robbi Alvarado DO Third trimester ([facility]); 15 weeks gestation of ([facility]); Diabetes mellitus lrehckrng58/27/2025amboo flowsheet [facility] [address] [place] [address] Robbi Alvarado DO from Last 3 Months Social History Tobacco UseTypesPacks/DayYears UsedDateSmoking Tobacco: Unknown Tobacco Cessation:Counseling Given: Not Answered Estimated Date of UbijmpctXmhoravlZge34/12/2026ased on Ultrasound, HR 161Sex and Gender InformationValueDate RecordedSex Assigned at BirthFemale 10/18/2022 1:41 PM EDTLegal YejWfhgim44/15/2023 7:24 PM EDTGender IdentityFemale 10/18/2022 1:41 PM EDTSexual JvouwcdxxkrLjsiasmm26/25/2023 1:41 PM EDT Last Filed Vital Signs Vital SignReadingTime TakenCommentsBlood Nwaywukn528/6003/17/2025 11:39 AM EDT Pulse--Temperature--Respiratory Rate--Oxygen Saturation--Inhaled Oxygen Concentration--Arktcw77 kg (183 lb)03/17/2025 11:39 AM BIVTdlzaa179.4 cm (5' 5.5 )10/08/2022 12:00 PM EDTBody Mass Index29.9910/08/2022 12:00 PM EDT Plan of Treatment DateTypeDepartmentCare Team (Latest Contact Info)Yvqaperdvtl31/24/2025 2:10 PM ESTRoutine [facility] [address] [place] [phone] Robbi Alvarado DO [address] [place] [address] 10/21/2025 8:30 AM EDTOffice Visit [facility] [address] [place] [address] Mckenna Carlin MD [address] [place] [address] Health MaintenanceDue DateLast DoneCommentsCOVID-19 Vaccine ( season) 5008/05/2021, 07/08/2021Influenza Vaccine (#1), 03/09/2022, 1Pneumococcal Vaccine: Pediatrics (0 to 5 Years) and At- Risk Patients (6 to 64 Years)Aged OutNo longer eligible based on patient's age to complete this topic Procedures Procedure NamePriorityDate/TimeAssociated DiagnosisCommentsPOCT URINALYSIS VHNPEKOWJewjrgz88/22/2025 11:48 AM EDT 23 weeks gestation of ([facility]) Second trimester fetus ([facility]) Diabetes mellitus screening AFP, SERUM, OPEN SPINA XFMRMEDkzdimb26/03/2025 9:48 AM EDT US OB 14+ WEEKS ANATOMY SCAN02/19/2025 11:16 AM EDT RECURRENT VAGINITIS (HTRX)Bonfmeg5302/16/2025 3:42 PM EDT POCT URINALYSIS SFIEAGKACxrfana40/23/2025 3:01 PM EDT 19 weeks gestation of ([facility]) Second trimester fetus ([facility]) Screening, , for anatomic survey ([facility]) IGP,APTIMA HPV,AGE BVGFMzghqfl60/23/2025 2:30 PM EDT PAP NPSHIBlvgbum65/23/2025 12:00 AM EDTPOCT URINALYSIS KWDSQWQSVehkiri98/27/2025 11:26 AM EDT Third trimester ([facility]) from Last 3 Months Results * POCT urinalysis dipstick manually resulted (03/17/2025 11:48 AM EDT) Only the most recent of3 resultswithin the time period is included. ComponentValueRef RangeTest MethodAnalysis TimePerformed AtPathologist Signature Color, UAYellowClarity, UAClearGlucose, UANegativeNegative - 2000(110) ++++ mg/dLBilirubin, UANegativeNegative - 4(70) +++ mg/dLKetones, UANegativeNegative - 160(16) ++++ mg/dLSpec Grav, UA1.0151 - 1.03Blood, UANegativeNegative - 50 Alvaro/mcLpH, UA6.05 - 9Protein, UANegativeNegative - 2000(20) ++++ mg/dL Urobilinogen, UA1.00.2 - 12 mg/dLLeukocytes, UANegativeNegative - 500+++ Catherine/mcL Nitrite, UANegativeNegative - PositiveSpecimen (Source)Anatomical Location / LateralityCollection Method / VolumeCollection TimeReceived BjedZyawd49/22/2025 11:48 AM EDT Narrative Authorizing ProviderResult TypeResult StatusCorey Christiano DOPOINT OF CARE TEST ENTER/EDIT ORDERABLESFinal Result * AFP, SERUM, OPEN SPINA BIFIDA (02/26/2025 9:48 AM EDT)ComponentValueRef Range Test MethodAnalysis TimePerformed AtPathologist SignatureRESULTSReport.TBHTEST RESULTS:*Screen Negative*.TBHGEST. AGE ON COLLECTION DATE21.1. weeksTBHGESTAT. AGE BASED ONUltrasound.TBHComment: ?19:5 on 02/16/2025 Recalculations are not recommended when gestational dating by LMP and ultrasound are within 10 days. MATERNAL AGE AT EDD23.1. yrTBHRACECaucasian.IHRJAFIWU196. lbsTBHINSULIN DEP DIABETESNo.TBHMULTIPLE GESTATIONNo.TBHAFP WBXQJ258.4. ng/mLTBHAFP MOM1.77.TBH OSBR RISK 1 CP8855.TBHINTERPRETATIONComment.TBHComment: Interpretation: Screen Negative This result is screen negative for OSB. The AFP MoM calculated is based on the gestational age provided. MS-AFP can identify up to 80% of open neural tube defects. Closed neural tube defects and some open defects may not be detected by this test. This test does not screen for Down Syndrome or Trisomy 18. If screening for Down Syndrome or Trisomy 18 is desired, contact [facility] to discuss available options. ??The [employer] recommends amniocentesis be offered to women age 35 and older. COMMENT:Comment.TBHComment: Barbara Moreno, Ph.D., [facility] Director References: Available Upon Request. Multiples Of Median Cutoffs ?For AFP Elevations Baird ?? 2.5 ? Black ?2.8 IDD ? 2.0 ? Twins ?4.5 ?Abbreviation Definitions IDD - Insulin Dep Diabetes OSBR - Open Spina Bifida Risk For further inquiries contact [facility] [facility] at [phone]. This test was developed and its performance characteristics determined by [facility]. It has not been cleared or approved by the Food and Drug Administration. Performed at: ??[facility] [address] [place], [place] ??[id number] Heavy Equipment Supervisor: Willow Mack [facility], Phone: ??[phone] Specimen (Source)Anatomical Location / LateralityCollection Method / Volume Collection TimeReceived Time02/26/2025 9:48 AM EDT1 9:50 AM EDT Narrative [facility] - 03/02/2025 10:07 PM EDT ULTRASOUND [id number] 5 19 N 1 Y 173 White/ Authorizing ProviderResult TypeResult StatusCorey Christiano DOLAB BLOOD ORDERABLES Final ResultPerforming OrganizationAddressCity/State/ZIP CodePhone Number [facility] * US OB 14+ weeks anatomy scan (02/19/2025 11:16 AM EDT)Anatomical Region LateralityModalityBodyUltrasoundSpecimen (Source)Anatomical Location / LateralityCollection Method / VolumeCollection TimeReceived Time02/19/2025 11:16 AM EDT Narrative 02/19/2025 11:16 AM EDT THIS EXAM WAS PERFORMED AT [facility] NAME: ??REMY LINARES : 2000 SEX: F Accession Number: [id number] ORDERING PHYSICIAN: CAN CASTREJON REFERRING PHYSICIAN: ROBBI ALVARADO Coding Procedures ? 28925: Ultrasound, uterus, real time with image documentation, and maternal evaluation ? plus detailed anatomic examination, transabdominal approach;single or first gestation ? 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 History OB History ? 1. Para 0 ? [id number] Current Cell free DNA ?low risk analysis Maternal Assessment Physical Exam ??Height 165 cm, 5 ft 5 in. Initial weight 80 kg, 176 lb. Initial BMI 29.29 kg/m??? Method Transabdominal and transvaginal ultrasound examination. View: Suboptimal view: limited by position. Baird . Number of fetuses: 1 Dating LMP on: ?09/25/2024 GA by LMP ?21 w + 0 d PETE by LMP: ?07/02/2025 Previous Ultrasound on: ?11/25/2024 Type of prior assessment: ?GA GA at prior assessment date ?7 w + 6 d GA by previous U/S ? 20 w + 1 d PETE by previous Ultrasound: ?07/08/2025 Ultrasound examination on: ? 02/19/2025 GA by U/S based upon: ??AC, BPD, Femur, HC GA by U/S ?20 w + 3 d PETE by U/S: ?07/06/2025 Assigned: ?based on ultrasound (GA), selected on 02/19/2025 Assigned GA (weeks days) ? 20 w + 1 d Assigned PETE: ??07/08/2025 General Evaluation Cardiac activity Present. FHR 143 bpm. Presentation: cephalic Placenta: Placental site: posterior, away from cervical os Umbilical cord: Cord vessels: 3 vessel cord. Insertion site: normal insertion Amniotic fluid: Amount of AF: normal amount. MVP 3.4 cm Biometry Standard BPD ?47.5 mm 20w 3d 59% Hadlock OFD ?63.7 mm 21w 5d 93% Mary HC ? 178.4 mm ?20w 2d 49% Hadlock Cerebellum tr ??20.8 mm 19w 6d 63% Hill Nuchal fold ?4.8 mm AC ? 161.8 mm ?21w 2d 79% Hadlock Femur ??31.5 mm 19w 6d 30% Hadlock Humerus ?31.4 mm 20w 3d 66% Mary HC / AC ?1.10 ? 13% Hadlock EFW ?361 g ?68% Hadlock EFW (lb) ? 0 lb EFW (oz) ? 13 oz EFW by: ?Hadlock ([id number]-IG-SJ-FL) Extended Tibia ??26.9 mm 19w 5d 41% Mary Milk Pickup Truck Driver ? 8.1 mm CM ? 4.4 mm ?? 29% Nicolaides Nasal bone ? 6.1 mm ?? 25% S[place]k Head / Face / Neck Cephalic index 0.75 ? 11% Nicolaides Nasal bone: ?present Extremities / Bony Struc FL / BPD ? 0.66 ? 16% Hadlock FL / HC ?0.18 ? 24% Hadlock FL / AC ?0.19 ? 3% Hadlock Other Structures FHR ?143 bpm Anatomy The following structures appear normal: Head/Neck: Cranium. Lateral ventricles. Choroid plexus. Midline falx. Cavum septi pellucidi. Cerebellum. Cisterna ? magna. Parenchyma. Vermis. ? Neck. Nuchal fold. Face: Lips. Profile. Nose. Nasal bone. Maxilla. Mandible. Orbits. Heart/Thorax: 4-chamber view. 3-vessel view. 7-kwnvtx-ldyijgf view. Situs. Cardiac position. Cardiac axis. Cardiac ? size. Cardiac rhythm. Abdomen: Abdom. wall. Cord insertion. Stomach. Kidneys. Bladder. Small bowel. Large bowel. Right renal artery. ? Left renal artery. Genitals. Spine: Thoracic spine. Lumbar spine. Extremities/Skeleton: Right upper arm. Right forearm. Right hand. Left upper arm. Left forearm. Left hand. Right upper leg. ? Right lower leg. Right foot. Left upper leg. Left lower leg. Left foot. The following structures could not be adequately visualized: Heart / Thorax RVOT view. Interventricular septum. Great vessels. ? Diaphragm. Spine ??Cervical spine. Sacral spine. The following structures could not be examined: Heart / Thorax LVOT view. Aortic arch view. Bicaval view. Ductal arch view. ? Right lung. Left lung. Maternal Structures Uterus Visualized Cervix Visualized ? Approach - Transvaginal: Cervical length 4.05 cm Right Ovary ?Not visualized Left Ovary ? Not visualized Cul de Sac ? Visualized. No free fluid visualized Impression Single live intrauterine consistent with 20w 1d with an PETE of 07/08/2025. Normal growth. EFW measures at the 68%, AC measures at the 79%. Transvaginal cervical length measures 4.05 cm. Amniotic fluid MVP measures 3.4 cm. Recommendations Please see [facility] documentation from today. The patient is scheduled in four to six week(s) to complete anatomic survey. Subsequent follow up or other follow up as clinically determined by primary OB provider unless otherwise specified by [facility]. Results forwarded to ordering provider so they can follow up with the patient as necessary. The copy-to physician of this order is ROBBI Hernández The ordering physician of this order is CAN Palacio Procedure Note Radiology, Radiologist, MD - 02/19/2025 THIS EXAM WAS PERFORMED AT [facility] NAME: REMY LINARES : 2000 SEX: F Accession Number: [id number] ORDERING PHYSICIAN: CAN CASTREJON REFERRING PHYSICIAN: ROBBI ALVARADO Coding Procedures 30452: Ultrasound, uterus, real time with image documentation, and maternal evaluation plus detailed anatomic examination, transabdominalapproach;single or first gestation 15441: Ultrasound, uterus, real time with imagedocumentation, transvaginal Indication Screening for Anatomic Survey, Screening for cervical length, Supervisionof high risk -FOB with LIZZIE gene. History OB History 1. Para 0 [id number] Current Cell free DNA low risk analysis Maternal Assessment Physical Exam Height 165 cm, 5 ft 5 in. Initial weight 80 kg, 176 lb.Initial BMI 29.29 kg/m??? Method Transabdominal and transvaginal ultrasound examination. View: Suboptimalview: limited by position. Baird . Number of fetuses: 1 Dating LMP on: 09/25/2024 GA by LMP 21 w + 0 d PETE by LMP: 07/02/2025 Previous Ultrasound on: 11/25/2024 Type of prior assessment: GA GA at prior assessment date 7 w + 6 d GA by previous U/S 20 w + 1 d PETE by previous Ultrasound: 07/08/2025 Ultrasound examination on: 02/19/2025 GA by U/S based upon: AC, BPD, Femur, HC GA by U/S 20 w + 3 d PETE by U/S: 07/06/2025 Assigned: based on ultrasound (GA), selected on 02/19/2025 Assigned GA (weeks days) 20 w + 1 d Assigned PEET: 07/08/2025 General Evaluation Cardiac activity Present. FHR 143 bpm. Presentation: cephalic Placenta: Placental site: posterior, away from cervical os Umbilical cord: Cord vessels: 3 vessel cord. Insertion site: normalinsertion Amniotic fluid: Amount of AF: normal amount. MVP 3.4 cm Biometry Standard BPD 47.5 mm 20w 3d 59% Hadlock OFD 63.7 mm 21w 5d 93% Mary HC 178.4 mm 20w 2d 49% Hadlock Cerebellum tr 20.8 mm 19w 6d 63% Hill Nuchal fold 4.8 mm AC 161.8 mm 21w 2d 79% Hadlock Femur 31.5 mm 19w 6d 30% Hadlock Humerus 31.4 mm 20w 3d 66% Mary HC / AC 1.10 13% Hadlock EFW 361 g 68% Hadlock EFW (lb) 0 lb EFW (oz) 13 oz EFW by: Hadlock (VXC-SM-WO-FL) Extended Tibia 26.9 mm 19w 5d 41% Mary Milk Pickup Truck Driver 8.1 mm CM 4.4 mm 29% Nicolaides Nasal bone 6.1 mm 25% Sonek Head / Face / Neck Cephalic index 0.75 11% Nicolaides Nasal bone: present Extremities / Bony Struc FL / BPD 0.66 16% Hadlock FL / HC 0.18 24% Hadlock FL / AC 0.19 3% Hadlock Other Structures FHR 143 bpm Anatomy The following structures appear normal: Head/Neck: Cranium. Lateral ventricles. Choroid plexus. Midline falx.Cavum septi pellucidi. Cerebellum. Cisterna magna. Parenchyma. Vermis. Neck. Nuchal fold. Face: Lips. Profile. Nose. Nasal bone. Maxilla. Mandible. Orbits. Heart/Thorax: 4-chamber view. 3-vessel view. 3-fsginz-pekeyvk view. Situs. Cardiac position. Cardiac axis. Cardiac size. Cardiac rhythm. Abdomen: Abdom. wall. Cord insertion. Stomach. Kidneys. Bladder. Smallbowel. Large bowel. Right renal artery. Left renal artery. Genitals. Spine: Thoracic spine. Lumbar spine. Extremities/Skeleton: Right upper arm. Right forearm. Right hand. Leftupper arm. Left forearm. Left hand. Right upper leg. Right lower leg. Right foot. Left upper leg. Left lower leg. Leftfoot. The following structures could not be adequately visualized: Heart / Thorax RVOT view. Interventricular septum. Great vessels. Diaphragm. Spine Cervical spine. Sacral spine. The following structures could not be examined: Heart / Thorax LVOT view. Aortic arch view. Bicaval view. Ductal archview. Right lung. Left lung. Maternal Structures Uterus Visualized Cervix Visualized Approach - Transvaginal: Cervical length 4.05 cm Right Ovary Not visualized Left Ovary Not visualized Cul de Sac Visualized. No free fluid visualized Impression Single live intrauterine consistent with 20w 1d with an PETE of 07/08/2025. Normal growth. EFW measures at the 68%, AC measures at the 79%. Transvaginal cervical length measures 4.05 cm. Amniotic fluid MVP measures 3.4 cm. Recommendations Please see [facility] documentation from today. The patient is scheduled in four to six week(s) to complete anatomicsurvey. Subsequent follow up or other follow up as clinically determined byprimary OB provider unless otherwise specified by MFM. Results forwarded to ordering provider so they can follow up with thepatient as necessary. The copy-to physician of this order is ROBBI Hernández The ordering physician of this order is CAN Palacio Authorizing ProviderResult TypeResult StatusCorey Christiano MAURER OB US PROCEDURES Final Result * (ABNORMAL) RECURRENT VAGINITIS (HTRX) (02/16/2025 3:42 PM EDT)ComponentValue Ref RangeTest MethodAnalysis TimePerformed AtPathologist SignatureATOPOBIUM UEINUIY896.961 - 24.689 ppm02/17/2025 6:46 AM EDTHealthTrackRx at [facility] ATOPOBIUM VAGINAENot Pmzlfucn14.961 - 24.689 ppm02/17/2025 6:46 AM EDT [facility]BV[facility] 2,3 (BACTERIAL VAGINOSIS ASSOCIATED BACTERIA 2, 3); MOBILUNCUS IFY659.961 - 24.689 ppm02/17/2025 6:46 AM EDTHealthTrackRx at [facility] CenterBVAB 2,3 (BACTERIAL VAGINOSIS ASSOCIATED BACTERIA 2, 3); MOBILUNCUS SPP Not Cdowalpb80.961 - 24.689 ppm02/17/2025 6:46 AM EDTHealthTrackRx at [facility] JOSÉ LUIS ALBICANS, PARAPSILOSIS, IWICZJWVOR945.000 - 30.347 ppm02/17/2025 6:46 AM EDTHealthTrackRx at LabPortCANDIDA ALBICANS, PARAPSILOSIS, TROPICALISNot Unluvovj71.000 - 30.347 ppm02/17/2025 6:46 AM EDTHealthTrackRx at [facility] JOSÉ LUIS GZUPDKHW983.000 - 31.618 ppm02/17/2025 6:46 AM EDTHealthTrackRx at [facility] CenterCANDIDA GLABRATANot Sicsgciz35.000 - 31.618 ppm02/17/2025 6:46 AM EDT [facility] JTWVFB181.000 - 30.873 ppm02/17/2025 6:46 AM EDTHealthTrackRx at [facility] CenterCANDA KRUSEINot Unvdgyzf56.000 - 30.873 ppm 02/17/2025 6:46 AM EDTHealthTrackRx at [facility] CenterCHLAMYDIA JHGAPEDGRPF394.000 - 31.586 ppm02/17/2025 6:46 AM EDTHealthTrackRx at [facility] CenterCHLAMYDIA TRACHOMATIS Not Mgxifvkz20.000 - 31.586 ppm02/17/2025 6:46 AM EDTHealthTrackRx at [facility] GARDNERELLA IBKTKEDVH465.961 - 24.689 ppm02/17/2025 6:46 AM EDTHealthTrackRx at [facility] CenterGARDNERELLA VAGINALISNot Pjaahbap92.961 - 24.689 ppm02/17/2025 6:46 AM EDTHealthTrackRx at [facility] Medical CenterMEGASPHAERA (TYPES 1, 2)27.34(A)19.961 - 24.689 ppm02/17/2025 6:46 AM EDTHealthTrackRx at [facility] Medical CenterMEGASPHAERA (TYPES 1, 2) Detected(A)19.961 - 24.689 ppm09 6:46 AM EDTHealthTrackRx at [facility] NEISSERIA FQHHGQRFPBE668.000 - 32.587 ppm02/17/2025 6:46 AM EDTHealthTrackRx at [facility] CenterNEISSERIA GONORRHOEAENot Ghllhrgf95.000 - 32.587 ppm02/17/2025 6:46 AM EDTHealthTrackRx at [facility] Medical CenterTRICHOMONAS KYGKLZGRC810.000 - 31.995 ppm 02/17/2025 6:46 AM EDTHealthTrackRx at [facility] CenterTRICHOMONAS VAGINALISNot Vtqyhykp94.000 - 31.995 ppm02/17/2025 6:46 AM EDTHealthTrackRx at [facility] MYCOPLASMA AXYNYLEBKM150.961 - 24.689 ppm02/17/2025 6:46 AM EDTHealthTrackRx at [facility] Medical CenterMYCOPLASMA GENITALIUMNot Gppxenja75.961 - 24.689 ppm02/17/2025 6:46 AM EDTHealthTrackRx at [facility] Medical CenterTET B, TET M17.33(A)23.000 - 27.500 ppm 02/17/2025 6:46 AM EDTHealthTrackRx at [facility], TET MDetected(A)23.000 - 27.500 ppm02/17/2025 6:46 AM EDTHealthTrackRx at [facility] Medical CenterSpecimen (Source) Anatomical Location / LateralityCollection Method / VolumeCollection Time Received VpfnIrvjvb52/23/2025 3:42 PM EDT02/17/2025 1:56 AM EDT Narrative Authorizing ProviderResult TypeResult StatusCorey Christiano DOLAB BLOOD ORDERABLES Final ResultPerforming OrganizationAddressCity/State/ZIP CodePhone Number [facility] at [facility] [address] [address] * IGP,APTIMA HPV,AGE GDLN (02/16/2025 2:30 PM EDT)ComponentValueRef RangeTest MethodAnalysis TimePerformed AtPathologist SignatureAGE GDLN ACOG TESTINGNote. TBHComment: ?? TESTS ? RESULT ??FLAG ??UNITS ?REF RANGE ??LAB ?? Clinician Provided Cytology Information ?? Source.............[facility] ?? No. of containers..01 ThinPrep Vial Age Algo ACOG Rose Mary... ??21-29 ? 01 ?FLAG LEGEND: ?L-Low Normal,H-High Normal,LL-Alert Low,HH-Alert High <-Panic Low,>-Panic High,A-Abnormal,AA-Critical Abnormal Performed at: 01 =G ?[facility] [address] ?? [address] [place], [place] ??[address] ?? Rachel Cooper MD, IGP, RFX APTIMA HPV ASCUNote.TBHComment: ?? TESTS ? RESULT ??FLAG ??UNITS ?REF RANGE ??LAB DIAGNOSIS: ?02 ?? NEGATIVE FOR INTRAEPITHELIAL LESION OR MALIGNANCY. Specimen adequacy: ?02 ?? Satisfactory for evaluation. ??Endocervical and/or squamous metaplastic ?? cells (endocervical component) are present. Performed by: ? 02 ?? Bryant Shaw Field Underwriter (ASCP) . ? 02 Note: ? Note ?02 ?? The Pap smear is a screening test designed to aid in the ?? detection of premalignant and malignant conditions of the ?? uterine cervix. ??It is not a diagnostic procedure and ?? should not be used as the sole means of detecting cervical ?? cancer. ??Both false-positive and false-negative reports do ?? occur. Test Methodology: ? Note ?02 ?? This liquid based ThinPrep(R) pap test was screened with ?? the use of an image guided system. . ? 02 ?? The HPV DNA reflex criteria were not met with this specimen ?? result therefore, no HPV testing was performed. ?FLAG LEGEND: ?L-Low Normal,H-High Normal,LL-Alert Low,HH-Alert High <-Panic Low,>-Panic High,A-Abnormal,AA-Critical Abnormal Performed at: 02 WB ?[facility] ?? [address] [place], [place] ??[address] ?? Rachel Cooper MD, Performed at: ??=G - [facility] [address] ??[id number] Heavy Equipment Supervisor: Rachel Cooper MD, Phone: ??[phone] Performed at: ??WB - [facility] [address] ??[id number] Heavy Equipment Supervisor: Rachel Cooper MD, Phone: ??[phone] Specimen (Source)Anatomical Location / LateralityCollection Method / Volume Collection TimeReceived Time02/16/2025 2:30 PM EDT02/16/2025 7:38 PM EDT Narrative CLINISYNC - 02/23/2025 12:08 PM EDT SPATULA-ALONE ENDOCERVIX Authorizing ProviderResult TypeResult StatusCorey Christiano DOLAB BLOOD ORDERABLES Final ResultPerforming OrganizationAddressCity/State/ZIP CodePhone Number CLINISYNC [facility] * Pap Smear (02/16/2025 12:00 AM EDT)Specimen (Source)Anatomical Location / LateralityCollection Method / VolumeCollection TimeReceived TimeSwabCervical swab / Unknown Narrative Authorizing ProviderResult TypeResult StatusFazio Nurse [facility] ObLAB CYTOLOGY ORDERABLESFinal ResultPerforming OrganizationAddressCity/State/ZIP CodePhone Number EXTERNAL LAB from Last 3 Months Insurance
--- OUTSIDE RECORDS SUMMARY | 2025-04-09 09:08 | XMS_ITS | Encounter Summary ---
Author Organization [facility] Address [address] [facility] [place] [address] Care Team Providers Care Direct Care Supervisor Name Role Phone Unavailable Primary Care Provider Unavailabl e Encounter Details DateTypeDepartmentCare Team (Latest Contact Info)Gzcnfqzdhkk99/07/2025Orders Only [facility] Medicine [address] [place] [address] Korin Talbert DO [address] [place] [address] Social History Tobacco UseTypesPacks/DayYears UsedDateSmoking Tobacco: UnknownEstimated Date of CehcbxgiAgilvdprPuz97/12/2026Based on Ultrasound, HR 161Sex and Gender InformationValueDate RecordedSex Assigned at RfvolKhninw42/25/2023 1:41 PM EDT Legal PlpMsnqir01/15/2023 7:24 PM EDTGender DigfpqbjFhfige58/25/2023 1:41 PM EDT Sexual EcbctybkufkOsqbkltz04/25/2023 1:41 PM EDTdocumented as of this encounter Plan of Treatment DateTypeDepartmentCare Team (Latest Contact Info)Axfzdtvkmha40/24/2025 2:10 PM ESTRoutine [facility] [address] [place] [phone] Jean-Pierre Alvarado DO [address] [facility] [address] [place] [address] 10/21/2025 8:30 AM EDTOffice Visit NOMMary Ellen [facility] [address] [place] [phone] Mckenna Carlin MD [address] [place] [address] documented as of this encounter Visit Diagnoses Not on filedocumented in this encounter
--- OUTSIDE RECORDS SUMMARY | 2025-04-09 09:08 | XMS_ITS ---
Author Organization [facility] Source Produ ction (ClinicalSummary Clone) Address Unknown Care Team Providers Care Rn Flight Name Role Phone Unavailable Primary Care Physician Unavailab le Results * [UNITY] CARRIER SCREEN Performed by: NetScaler Component Value Range Date Sickle Cell Disease/Beta-Thalassemia/Hemoglobino pathies carrier screen NEGATIVE 12/24/2024 04:56 am UTCAlpha-Thalassemia carrier soimueXKHRDARA53/31/2025 04:56 am UTCCystic Fibrosis carrier uvqdhrCWCXTBGZ04/31/2025 04:56 am UTCSpinal Muscular Atrophy carrier screenNEGATIVE 2 SMN1 copies, SNP not faijpqk9412/24/2024 04:56 am UTCFor detailed report, see PDFSee PDF12/24/2024 04:56 am UTC 12/24/2024 04:56 am UTC Social History Observation Value Start Date End Date
--- OUTSIDE RECORDS SUMMARY | 2025-04-09 09:08 | XMS_ITS | Encounter Summary ---
Author Organization [facility] tem Address [id number] [address] [place] [address] Care Team Providers Care Care Transport Nurse Name Role Phone Unavailable Primary Care Provider Unavailabl e Encounter Details DateTypeDepartmentCare Team (Latest Contact Info)Atvxeyxihdr84/06/2025Travel Social History Tobacco UseTypesPacks/DayYears UsedDateSmoking Tobacco: NeverPassive Smoke Exposure: CurrentSmokeless Tobacco: NeverAlcohol UseStandard Drinks/WeekComments Not Currently0 (1 standard drink = 0.6 oz pure alcohol)Hunger ScreeningAnswer Date RecordedWithin the past 12 months we worried whether our food would run out before we got money to buy more.Never True02/19/2025Within the past 12 months the food we bought just didn't last and we didn't have money to get more.Never True02/19/2025Estimated Date of RqaahvcyAkadkhqhXel22/12/2026ased on UltrasoundSex and Gender InformationValueDate RecordedSex Assigned at BirthNot on fileLegal GchTpcfux48/05/2025 3:49 PM EDTGender IdentityNot on fileSexual OrientationNot on filedocumented as of this encounter Plan of Treatment DateTypeDepartmentCare Team (Latest Contact Info)Ngwnhdehyus18/11/2025 2:15 PM ESTAppointment Maternal Medicine [place] [address] [facility] [address] [place] [address] documented as of this encounter Visit Diagnoses Not on filedocumented in this encounter
--- OUTSIDE RECORDS SUMMARY | 2025-04-09 09:08 | XMS_ITS | Encounter Summary ---
Author Organization [facility] tem Address [facility] [address] [place] [address] Care Team Providers Care Assembler Wire Mesh Gate Name Role Phone Unavailable Primary Care Provider Unavailabl e Reason for Referral * Diagnostic Imaging (Routine) - Pending ReviewSpecialtyDiagnoses / Procedures Referred By ContactReferred To ContactMaternal and Medicine Diagnoses Genetic carrier Encounter for follow-up ultrasound of anatomy Procedures US MFM with or without consult Jean-Pierre Alvarado DO [address] [place] [address] [place] [address] Phone: tel: fax: Maternal- Medicine at [facility] [address] [place] [address] Phone: tel: fax: Referral IDStatusReasonStart DateExpiration DateVisits RequestedVisits [id number] Nbshea45/ Encounter Details DateTypeDepartmentCare Team (Latest Contact Info)Arijpsvtjbd16/06/2025Orders Only Maternal Medicine [place] [address] [facility] [address] [place] [phone] Megan Ragsdale RN 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); Encounter for follow-up ultrasound of anatomy Social History Tobacco UseTypesPacks/DayYears UsedDateSmoking Tobacco: NeverPassive [...] money to get more.Never True02/19/2025Estimated Date of VgekmtroVnrvoqskJbc78/12/2026ased on UltrasoundSex and Gender InformationValueDate RecordedSex Assigned at BirthNot on fileLegal EtjWiyipr39/05/2025 3:49 PM EDTGender IdentityNot on fileSexual OrientationNot on filedocumented as of this encounter Plan of Treatment DateTypeDepartmentCare Team (Latest Contact Info)Fymgflijtwv30/11/2025 2:15 PM ESTAppointment Maternal Medicine [place] [address] [phone] NameTypePriorityAssociated DiagnosesOrder ScheduleUS MFM with or without consult ImagingRoutine Genetic carrier Encounter for follow-up ultrasound of anatomy Expected: 04/01/2025, Expires: 04/01/2026documented as of this encounter Visit Diagnoses Diagnosis Genetic carrier- Primary Other genetic carrier status Encounter for follow-up ultrasound of anatomy documented in this encounter
[2025-04-09 10:20] LABS: Hematocrit 36.8 % (36.0-48.0); Hemoglobin 12.4 g/dL (12.0-16.0); Immature Granulocytes Abs Auto 0.18 10^3/uL (0.00-0.03); Immature Granulocytes Pct Auto 1.3 % (0.0-0.5); Lymphocytes Absolute Auto 1.5 10^3/uL (1.2-3.8); Mean Corpuscular HGB Conc 33.7 g/dL (29.9-35.2); Mean Corpuscular Hemoglobin 29.4 pg (26.7-34.0); Mean Corpuscular Volume 87.2 fL (81.0-99.0); Platelet Count 306 10^3/uL (150-450); Red Blood Count 4.22 10^6/uL (4.20-5.40); White Blood Count 13.6 10^3/uL (4.0-11.0)
[2025-04-09 10:36] LABS: Glucose 1 Hour 131 mg/dL (<130)
== END 2025-04-09 09:04 | disposition home or self-care (01) ==
LOC: LAB 09:04
PROVIDERS: PCP Student in an Organized Health Care Education/Training Program; Visit Provider Obstetrics & Gynecology
DX: Z13.1 Encounter for screening for diabetes mellitus (principal)
CPT/HCPCS: 36415; 82950; 85025

== ENCOUNTER 2025-04-13 15:39 | Observation (INO) | payer BC, OTHER, SELFPAY ==
[2025-04-13 15:56] VITALS: BP 117/63; PULSE 88
[2025-04-13 16:05] LABS: Glucose Urine UA NEGATIVE (NEGATIVE)
--- NOTE | 2025-04-13 16:24 | US_ITS ---
[address] [address] Patient Name: VIJAY POE MRN: [id number] date: 2000 Sex: F Assigned Patient Location: [facility] Current Patient Location: Accession/Order Number: [id number] Exam Date: 04/13/2025 17:00 Report Date: 04/13/2025 18:59 At the request of: ROBBI DUARTE DO Procedure: US OB cervical length Limited ultrasound obtained to assess the placenta and cervix Fetus is in cephalic presentation with longitudinal lie. heart rate 131 bpm. Cervical length is 4.2 cm. The cervical os is closed. Somatic motion identified. Placenta contains hypoechoic area measuring 2.0 x 1.4 x 2.6 cm. Posterior position of placenta No previa. No abruption. US/US OB cervical length IMPRESSION: Cervical length 4.2 cm. Cervical os closed. Incidental hypoechoic area placenta measuring up to 2.6 cm. No placenta previa or abruption. Impression dictated by: Michoacano Boles M.D. 04/13/2025 6:59 PM Dictation [facility] Electronically authenticated by: [id number] Y Date: 04/13/2025 18:59
--- NOTE | 2025-04-13 16:24 | US_ITS ---
[address] [address] Patient Name: VIJAY POE MRN: [id number] date: 2000 Sex: F Assigned Patient Location: [facility] Current Patient Location: Accession/Order Number: [id number] Exam Date: 04/13/2025 17:00 Report Date: 04/13/2025 18:59 At the request of: ROBBI DUARTE DO Procedure: US OB cervical length Limited ultrasound obtained to assess the placenta and cervix Fetus is in cephalic presentation with longitudinal lie. heart rate 131 bpm. Cervical length is 4.2 cm. The cervical os is closed. Somatic motion identified. Placenta contains hypoechoic area measuring 2.0 x 1.4 x 2.6 cm. Posterior position of placenta No previa. No abruption. US/US OB placenta IMPRESSION: Cervical length 4.2 cm. Cervical os closed. Incidental hypoechoic area placenta measuring up to 2.6 cm. No placenta previa or abruption. Impression dictated by: Michoacano Boles M.D. 04/13/2025 6:59 PM Dictation Location: [place] [address] Electronically authenticated by: [id number] Y Date: 04/13/2025 18:59
--- NOTE | 2025-04-13 17:34 | PC.NURSE ---
u/s results reveal closed cervical length of 4.4 and a venous luna of placenta noted of 2.2 which is smaller than previous u/s, pt to be discharged
== END 2025-04-13 17:39 | disposition home or self-care (01) ==
LOC: FBC 15:41
PROVIDERS: Admitting Provider Obstetrics & Gynecology; PCP Student in an Organized Health Care Education/Training Program; Visit Provider Obstetrics & Gynecology
DX: O26.852 Spotting complicating pregnancy, second trimester (principal); O99.891 Other specified diseases and conditions complicating pregnancy; R10.9 Unspecified abdominal pain; Z3A.27 27 weeks gestation of pregnancy
CPT/HCPCS: 59025; 76815; 76817; 81003; G0378; G0379

== ENCOUNTER 2025-04-21 08:03 | Outpatient (RCR) | payer BC, OTHER, SELFPAY ==
[2025-04-21 09:18] VITALS: BP 119/74; PULSE 91; TEMP 36.4; O2SAT 96
[2025-04-21] MEDS: RHO(D) IMMUNE GLOBULIN 1,500 UNIT SYRINGE 1500 UNIT IM (09:33)
== END 2025-04-26 08:31 | disposition home or self-care (01) ==
LOC: LAB 08:03
PROVIDERS: PCP Student in an Organized Health Care Education/Training Program; Visit Provider Obstetrics & Gynecology
DX: Z51.81 Encounter for therapeutic drug level monitoring (principal); Z67.91 Unspecified blood type, Rh negative
CPT/HCPCS: 36415; 86850; 86900; 86901; 96372; J2791

== ENCOUNTER 2025-05-18 09:57 | Outpatient (OUT) | payer BC, OTHER, SELFPAY ==
--- OUTSIDE RECORDS SUMMARY | 2025-05-04 08:30 | XMS_ITS | Encounter Summary ---
Author Organization [facility] Address [address] [place] [address] Care Team Providers Care Radiology Asst Name Role Phone Unavailable Primary Care Provider Unavailabl e Reason for Visit * ReasonCommentsRoutine Visit Encounter Details DateTypeDepartmentCare Team (Latest Contact Info)Mrgqpdzlbia96/09/2025 8:30 AM ESTRoutine [facility] [address] [place] [address] Amisha Laguerre, COMMONWEALTH ATTORNEY [address] [place] [address] Third trimester ([facility]); 30 weeks gestation of ([facility]) Social History Tobacco UseTypesPacks/DayYears UsedDateSmoking Tobacco: UnknownEstimated Date of JobggnndApplkboyJgt71/12/2026ased on Ultrasound, HR 161Sex and Gender InformationValueDate RecordedSex Assigned at DtwyoBjcgvq64/25/2023 1:41 PM EDT Legal OqbRpwjyj02/15/2023 7:24 PM EDTGender AutcstgsExoxem88/25/2023 1:41 PM EDT Sexual PqhojxyjkosSdbxhxtf13/25/2023 1:41 PM EDTdocumented as of this encounter Last Filed Vital Signs Vital SignReadingTime TakenCommentsBlood Sojjohrs594/6205/04/2025 8:37 AM EST Pulse--Temperature--Respiratory Rate--Oxygen Saturation--Inhaled Oxygen Concentration--Vontgc14.8 kg (187 lb)05/04/2025 8:37 AM ESTHeight--Body Mass Index30.65010/08/2022 12:00 PM EDTdocumented in this encounter Progress Notes * Amisha Laguerre NP - 05/04/2025 8:30 AM EST Reason for Appointment: Patient ID: Susan Alberto is a 24 y.o. female who presents for Routine Visit Patient presents today for Return OB appointment. MEDICATIONS Current Outpatient Medications Medication Instructions clindamycin (Cleocin T) 1 % lotion Apply thin layer to face, once daily in the morning, 30 day supply Lexapro 20 MG tablet magnesium oxide (MAG-OX) 400 mg, Daily MV-Min-Fe Fum-FA-DHA ( 1 PO) Take by mouth ALLERGIES Allergies Allergen Reactions Amoxicillin GI intolerance Amoxicillin-Pot Clavulanate Nausea Only Levalbuterol Hives Xopenex Levalbuterol Hcl Other Reaction(s): Unknown PROBLEMS Active Ambulatory Problems Diagnosis Date Noted 19 weeks gestation of ([facility]) 02/16/2025 Second trimester fetus ([facility]) 02/16/2025 Resolved Ambulatory Problems Diagnosis Date Noted No Resolved Ambulatory Problems Past Medical History: Diagnosis Date Acne HISTORY PAST MEDICAL HISTORY SOCIAL HISTORY Past Medical History: Diagnosis Date Acne Social History Tobacco Use Smoking status: Unknown Smokeless tobacco: Not on file Substance Use Topics Alcohol use: Not on file Drug use: Not on file FAMILY HISTORY No family history on file. SURGICAL HISTORY History reviewed. No pertinent surgical history. REVIEW OF SYSTEMS Review of Systems: Review of Systems Constitutional: Negative. HENT: Negative. Eyes: Negative. Respiratory: Negative. Cardiovascular: Negative. Gastrointestinal: Negative. Genitourinary: Negative. Musculoskeletal: Negative. Skin: Negative. Neurological: Negative. All other systems reviewed and are negative. Hematological: Negative. Endocrine: Negative. Allergic/Immunologic: Negative. OBJECTIVE Objective: Physical Exam Constitutional: Appearance: Normal appearance. She is well-developed. Cardiovascular: Rate and Rhythm: Normal rate and regular rhythm. Pulmonary: Effort: Pulmonary effort is normal. Breath sounds: Normal breath sounds. Abdominal: General: Bowel sounds are normal. There is no distension. Palpations: Abdomen is soft. Tenderness: There is no abdominal tenderness. There is no guarding or rebound. Musculoskeletal: General: No swelling. Normal range of motion. Right lower leg: No edema. Left lower leg: No edema. Neurological: Mental Status: She is alert and oriented to person, place, and time. Skin: General: Skin is warm and dry. Psychiatric: Mood and Affect: Mood normal. Behavior: Behavior normal. Vitals and nursing note reviewed. Exam conducted with a assistant credit manager present. Vitals: Estimated body mass index is 29.83 kg/m?? as calculated from the following: Height as of 10/08/22: 5' 5.5 . Weight as of 04/19/25: 182 lb. BP: Patient's last menstrual period was 09/25/2024. ASSESSMENT & PLAN ICD-10-CM 1. Third trimester ([facility]) Z34.93 2. 30 weeks gestation of ([facility]) Z3A.30 POCT urinalysis dipstick manually resulted Assessment/Plan Return OB: Patient presents today for a routine obstetrics appointment. Patient is currently 30w5d . Patient states she is doing well but has complaints of being tired due to current . Patient has verbalizes frequent movement. labor precautions was discussed/given and patient was instructed to perform kick counts three times a day. Orders Placed This Encounter Procedures POCT urinalysis dipstick manually resulted Follow Up: Patient is to return to office in 2 week for routine OB appointment. Documented by Elise Acuna CST on behalf of: Amisha Laguerre NP documented in this encounter Plan of Treatment DateTypeDepartmentCare Team (Latest Contact Info)Nifgtlxpcak58/23/2025 11:40 AM ESTRoutine NOMMary Ellen [place] OBGYN [address] [place] [address] Jean-Pierre Alvarado DO [address] [place], [place] [phone] 10/21/2025 8:30 AM EDTOffice Visit NOMMary Ellen [facility]at[facility] [address] [place] [address] Mckenna Carlin MD [address] [place], [place] [phone] NameTypePriorityAssociated DiagnosesOrder ScheduleUS OB follow up transabdominal approachImagingRoutine 30 weeks gestation of ([facility]) Expected: 05/04/2025, Expires: 09/02/2025documented as of this encounter Procedures Procedure NamePriorityDate/TimeAssociated DiagnosisCommentsPOCT URINALYSIS WBWBXFHTPsryagq59/09/2025 8:46 AM EST 30 weeks gestation of ([facility]) documented in this encounter Results * POCT urinalysis dipstick manually resulted (05/04/2025 8:46 AM EST)Component ValueRef RangeTest MethodAnalysis TimePerformed AtPathologist SignatureColor, UAYellowClarity, UAClearGlucose, UANegativeNegative - 2000(110) ++++ mg/dL Bilirubin, UANegativeNegative - 4(70) +++ mg/dLKetones, UANegativeNegative - 160(16) ++++ mg/dLSpec Grav, UA1.0251 - 1.03Blood, UANegativeNegative - 50 Alvaro/mcLpH, UA7.05 - 9Protein, UANegativeNegative - 2000(20) ++++ mg/dL Urobilinogen, UA1.00.2 - 12 mg/dLLeukocytes, UANegativeNegative - 500+++ Catherine/mcLNitrite, UANegativeNegative - PositiveSpecimen (Source)Anatomical Location / LateralityCollection Method / VolumeCollection TimeReceived Time Urine05/04/2025 8:46 AM EST Narrative Authorizing ProviderResult TypeResult StatusAmisha Laguerre NPPOINT OF CARE TEST ENTER/EDIT ORDERABLESFinal Result documented in this encounter Visit Diagnoses Diagnosis Third trimester ([facility]) state, incidental 30 weeks gestation of ([facility]) documented in this encounter
--- OUTSIDE RECORDS SUMMARY | 2025-05-18 09:58 | XMS_ITS | Encounter Summary ---
Author Organization [facility] Address [address] [place] [address] Care Team Providers Care Assembler Wire Mesh Gate Name Role Phone Unavailable Primary Care Provider Unavailabl e Encounter Details DateTypeDepartmentCare Team (Latest Contact Info)Dquasgrgjtz48/22/2025Travel Social History Tobacco UseTypesPacks/DayYears UsedDateSmoking Tobacco: UnknownEstimated Date of EzsbuopkDjbwkfhpRfl93/12/2026ased on Ultrasound, HR 161Sex and Gender InformationValueDate RecordedSex Assigned at AvhwpBldwic27/25/2023 1:41 PM EDT Legal LtkEmmvfe34/15/2023 7:24 PM EDTGender GlycfnbxNgkglc97/25/2023 1:41 PM EDT Sexual HoxrqzopgbzCnaixtfp85/25/2023 1:41 PM EDTdocumented as of this encounter Plan of Treatment DateTypeDepartmentCare Team (Latest Contact Info)Dtlatidqado47/23/2025 11:40 AM ESTRoutine NOMMary Ellen [place] OBGYN [address] [facility] [place] [address] Jean-Pierre Alvarado, DO [address] [facility] [address] [place], [facility] 10/21/2025 8:30 AM EDTOffice Visit JORDON [facility] [address] [facility] [address] [facility] [address] [place] [address] Mckenna Carlin MD [address] [facility] [address] [place] [address] documented as of this encounter Visit Diagnoses Not on filedocumented in this encounter
--- OUTSIDE RECORDS SUMMARY | 2025-05-18 09:58 | XMS_ITS | Clinical Summary ---
Author Organization [facility] Address [address] [place] [address] Phone Care Team Providers Care Etched Circuit Processor Name Role Phone Unavailable Primary Care Provider Unavailabl e Social History Tobacco UseTypesPacks/DayYears UsedDateSmoking Tobacco: Never Assessed CommentsUnknownSex and Gender InformationValueDate RecordedSex Assigned at Not on fileLegal GlpPrvsmr93/25/2022 6:27 PM ESTGender IdentityNot on fileSexual OrientationNot on file Last Filed Vital Signs Vital SignReadingTime TakenCommentsBlood Pressure--Pulse--Temperature-- Respiratory Rate--Oxygen Saturation--Inhaled Oxygen Concentration--Vfkfes09.4 kg (120 lb)03/11/2020 9:07 AM OVXGnanrs877.6 cm (5' 4 )03/11/2020 9:07 AM EDTBody Mass Index20. 9:07 AM EDT Plan of Treatment Not on file
--- OUTSIDE RECORDS SUMMARY | 2025-05-18 09:58 | XMS_ITS | Encounter Summary ---
Author Organization [facility] Address [address] [place] [address] Care Team Providers Care Residential Framing Carpenter Name Role Phone Unavailable Primary Care Provider Unavailabl e Encounter Details DateTypeDepartmentCare Team (Latest Contact Info)Xzgwprdasyj92/09/2025amboo flowsheet NOMMary Ellen STRATTON [address] [place] [address] Amisha Laguerre, SHERRI [address] [place] [address] Social History Tobacco UseTypesPacks/DayYears UsedDateSmoking Tobacco: UnknownEstimated Date of PmfxbyobZumlyeriNsm74/12/2026Based on Ultrasound, HR 161Sex and Gender InformationValueDate RecordedSex Assigned at ZoflsVuilyg15/25/2023 1:41 PM EDT Legal HwsIjvnmf17/15/2023 7:24 PM EDTGender RhovajrzBbyrpt44/25/2023 1:41 PM EDT Sexual LrqqzaudihzItywvncd71/25/2023 1:41 PM EDTdocumented as of this encounter Plan of Treatment DateTypeDepartmentCare Team (Latest Contact Info)Eoxifmuzqsc58/23/2025 11:40 AM ESTRoutine [facility] Henrry STRATTON [address] [place] [address] Jean-Pierre Alvarado DO [address] [place] [address] 10/21/2025 8:30 AM EDTOffice Visit [facility] [place] [facility] [address] [place] [phone] Mckenna Carlin MD [address] [place] [address] documented as of this encounter Visit Diagnoses Not on filedocumented in this encounter
--- NOTE | 2025-05-18 09:59 | US_ITS ---
The [address] [address] Patient Name: VIJAY POE MRN: [id number] date: 2000 Sex: F Assigned Patient Location: Current Patient Location: US Accession/Order Number: [id number] Exam Date: 05/18/2025 10:00 Report Date: 05/18/2025 11:35 At the request of: ROBBI DUARTE DO Procedure: US OB growth ULTRASOUND OB GROWTH COMPARISON: 11/25/2024 CLINICAL DATA: Size and consistent with dates There is a single live intrauterine gestation in cephalic presentation. There is cardiac and somatic activity with heart rate of 137 bpm. The amniotic fluid index measures 15.8 cm which is in upper normal range. The following measurements were obtained: Biparietal diameter 8.1 cm 32 weeks 5 days 41% Head circumference 30.9 cm 34 weeks 4 days 62% Abdominal circumference 30.0 cm 33 weeks 6 days 81% Femur length 6.1 cm 31 weeks 5 days 60% The composite ultrasound age based on these measurements is 33 weeks 2 days +/- 2 weeks 2 days. The estimated weight is 4 lbs. 12 oz. +/- 11 ounces (56%). US/US OB growth IMPRESSION: SINGLE LIVE INTRAUTERINE GESTATION WITH ULTRASOUND AGE OF 33 WEEKS 2 DAYS. Impression dictated by: Shavon Forbes M.D. 05/18/2025 11:35 AM Dictation Location: [place] [address] Electronically authenticated by: [id number] Y Date: 05/18/2025 11:35
--- OUTSIDE RECORDS SUMMARY | 2025-05-18 09:59 | XMS_ITS | Clinical Summary ---
Author Organization [facility] [employer] [facility] tem Address [id number] [address] [place] [address] Care Team Providers Care Chief Librarian Music Department Name Role Phone Unavailable Primary Care Provider Unavailabl e Allergies Active AllergyReactionsCriticalityNoted DateCommentsAmoxicillin-Pot Clavulanate Ltnnnd9112/31/20244583Yoqmnnzawjxr68/07/2025Levalbuterol Hcl12/31/2024 Medications MedicationSigDispense QuantityRefillsLast FilledStart DateEnd DateStatus ondansetron ODT (ZOFRAN ODT) 4 mg disintegrating tablet Dissolve 1 tablet (4 mg total) on tongue every 8 (eight) hours as needed for nausea or vomiting.Active escitalopram (LEXAPRO) 20 mg tablet Take 1 tablet (20 mg total) by mouth in the morning.Active vit 73-epzw-wccbk-dha 27mg iron- 800 mcg-250 mg capsule Take 1 tablet by mouth in the morning.Active metroNIDAZOLE (FLAGYL) 500 mg tablet Take 1 tablet (500 mg total) by mouth 3 (three) times a day.Active Encounters DateTypeDepartmentCare WftvCzdmgbqyzdz80/11/5426Kppost52/06/2025Orders Only [facility] [place] [address] [facility] [address] [place] [address] Megan Ragsdale RN 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); Encounter for follow-up ultrasound of ctpzgao3504/01/20258610Ogpmwb51/09/2025 Orders Only Maternal- Medicine at [facility] [address] [place] [address] Meri Key LPN 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; 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, murvywjlxk19/09/2025Orders Only Maternal- Medicine at [facility] [address] [place] [phone] Shahid JAELYN Jerez 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); 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, ynoeapbpie09/26/2025 11:00 AM EDTOffice Visit Maternal- Medicine at [facility] [address] [place] [address] Adeline Castrejon MD 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); History of MRSA infection; 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, antepartum; Anxiety disorder affecting , antepartum; 20 weeks gestation of zfyqlmjuq02/26/2025 9:29 AM EDT - 02/19/2025 11:59 PM EDT Hospital Encounter [facility] [address] [place] [address] Screening, , for anatomic survey Discharge Disposition: Home02/19/2025Orders Only Maternal- Medicine at [facility] [address] [place] [phone] Meri Key LPN 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); 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, agnemkrdrk43/24/2025Travelfrom Last 3 Months Family History Medical HistoryRelationNameCommentsCancerMaternal [...] money to get more.Never True02/19/2025Estimated Date of EqvtruehTinyeulySws66/12/2026ased on UltrasoundSex and Gender InformationValue Date RecordedSex Assigned at BirthNot on fileLegal MeoOdynbm40/05/2025 3:49 PM EDTGender IdentityNot on fileSexual OrientationNot on file Last Filed Vital Signs Vital SignReadingTime TakenCommentsBlood Elmrtbic075/69002/19/2025 9:52 AM EDT Zsyaw841102/19/2025 9:52 AM EDTTemperature--Respiratory Rate--Oxygen Saturation-- Inhaled Oxygen Concentration--Aepbyh42 kg (176 lb 6.4 oz)02/19/2025 9:52 AM EDT Qxxpbe903.1 cm (5' 5 )02/19/2025 9:52 AM EDTBody Mass Index29.35002/19/2025 9:52 AM EDT Plan of Treatment Health MaintenanceDue DateLast DoneCommentsDepression Lkyqcuivi44/16/2014dult BMI Follow Up Plan2020COVID-19 Vaccine ( season)2025 08/05/2021, 07/08/2021Influenza Lwkjkfn41/, 03/09/2022, 04/07/2021SV ( or age 60+ yrs) (1 - Risk 1-dose series) 05/13/2025dult BMI Orekmzcxs79Tobacco Hsslnrxgj59/26/2026 02/19/2025Pap SmearDTaP,Tdap and Td Vaccines (7 - Td or Tdap)/10/2022, 09/17/2007, 09/26/2005, Additional history exists Medical Devices Not on file Procedures Procedure NamePriorityDate/TimeAssociated DiagnosisCommentsUS MFM OB FOLLOW-UP, 1 EFXOMIgiyxwq35/11/2025 2:51 PM EST Genetic carrier Encounter for follow-up ultrasound of anatomy US MFM OB FOLLOW-UP, 1 FBUEPMdpqzqd01/06/2025 3:06 PM EST 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 Anatomical RegionLateralityModalityOB-GYNUltrasoundSpecimen (Source)Anatomical Location / LateralityCollection Method / VolumeCollection TimeReceived Time 05/06/2025 2:20 PM EST Narrative 05/06/2025 4:35 PM EST NAME: ??LUI LINARES : 2000 SEX: F Accession Number: [id number] ORDERING PHYSICIAN: ROBBI DUARTE REFERRING PHYSICIAN: ROBBI DUARTE Coding Procedures ? 56799: Ultrasound, uterus, real time with image documentation, follow up,transabdominal ? 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 History OB History ? 1. Para 0 ? [id number] Current Cell free DNA ?low risk analysis Maternal Assessment Physical Exam ??Height 165 cm, 5 ft 5 in. Initial weight 80 kg, 176 lb. Initial BMI 29.29 kg/m?? Method Transabdominal ultrasound examination. View: Suboptimal view: limited by position. Baird . Number of fetuses: 1 Dating LMP on: ?09/25/2024 GA by LMP ?31 w + 6 d PETE by LMP: ?07/02/2025 Previous Ultrasound on: ?11/25/2024 Type of prior assessment: ?GA GA at prior assessment date ?7 w + 6 d GA by previous U/S ? 31 w + 0 d PETE by previous Ultrasound: ?07/08/2025 Ultrasound examination on: ? 05/06/2025 GA by U/S based upon: ??AC, BPD, Femur, HC GA by U/S ?31 w + 6 d PETE by U/S: ?07/02/2025 Assigned: ?based on ultrasound (GA), selected on 02/19/2025 Assigned GA (weeks days) ? 31 w + 0 d Assigned PETE: ??07/08/2025 General Evaluation Cardiac activity Present. FHR 141 bpm. Presentation: cephalic Placenta: Placental site: posterior, previously documented away from cervical os Umbilical cord: Cord vessels: 3 vessel cord. Insertion site: documented previously Amniotic fluid: Amount of AF: normal amount. MVP 7.1 cm Biometry Standard BPD ?80.2 mm 32w 1d 76% Hadlock OFD ?102.6 mm ?33w 2d 94% Mary HC ? 290.4 mm ?32w 0d 40% Hadlock Cerebellum tr ??39.3 mm 31w 5d 56% Hill AC ? 289.2 mm ?32w 6d 92% Hadlock Femur ??57.7 mm 30w 1d 17% Hadlock Humerus ?52.4 mm 30w 4d 40% Mary HC / AC ?1.00 EFW ?1,875 g ??70% Hadlock EFW (lb) ? 4 lb EFW (oz) ? 2 oz EFW by: ?Hadlock ([id number]-[id number]-FL) Extended Tibia ??49.1 mm 29w 3d 17% Mary Denier Control Operator ? 4.3 mm CM ? 8.7 mm ?? 87% Nicolaides Head / Face / Neck Cephalic index 0.78 ? 36% Nicolaides Nasal bone: ?documented previously Extremities / Bony Struc FL / BPD ? 0.72 FL / HC ?0.20 FL / AC ?0.20 Other Structures FHR ?141 bpm Anatomy The following structures appear normal: Head/Neck: Cranium. Lateral ventricles. Cavum septi pellucidi. Cerebellum. Cisterna magna. Parenchyma. Vermis. Heart/Thorax: Situs. Cardiac position. Cardiac axis. Cardiac size. Cardiac rhythm. ? Diaphragm. Abdomen: Abdom. wall. Stomach. Kidneys. Bladder. Spine: Cervical spine. Thoracic spine. Lumbar spine. Sacral spine. The following structures could not be adequately visualized: Heart / Thorax 4-chamber view. Ductal arch view. The following structures were documented previously: Head / Neck ?Choroid plexus. Midline falx. ? Neck. Nuchal fold. Face: Lips. Profile. Nose. Nasal bone. Maxilla. Mandible. Orbits. Heart / Thorax RVOT view. LVOT view. 3-vessel view. 6-ilueri-xsehpug view. Aortic arch view. Bicaval view. ? Interventricular septum. Great vessels. ? Right lung. Left lung. Abdomen ?Cord insertion. Right renal artery. Left renal artery. [...] Sac ? Suboptimal Impression Single live intrauterine at 31w 0d. Normal growth. EFW measures at the 70%, AC measures at the 92%. Amniotic fluid MVP measures 7.1 cm. Recommendations Please see [facility] recommendations from prior clinical and/or ultrasound report documentation. anatomic survey is incomplete due to late gestational age and suboptimal visualization. Patient is not scheduled to return for additional ultrasound. Please reschedule for specific concerns or indications. Subsequent follow up or other follow up as clinically determined by primary OB provider unless otherwise specified by [facility]. Results forwarded to ordering provider so they can follow up with the patient as necessary. 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 History OB History 1. Para 0 [id number] Current Cell free DNA low risk analysis Maternal Assessment Physical Exam Height 165 cm, 5 ft 5 in. Initial weight 80 kg, 176 lb.Initial BMI 29.29 kg/m?? Method Transabdominal ultrasound examination. View: Suboptimal view: limited byfetal position. Baird . Number of fetuses: 1 Dating LMP on: 09/25/2024 GA by LMP 31 w + 6 d PETE by LMP: 07/02/2025 Previous Ultrasound on: 11/25/2024 Type of prior assessment: GA GA at prior assessment date 7 w + 6 d GA by previous U/S 31 w + 0 d PETE by previous Ultrasound: 07/08/2025 Ultrasound examination on: 05/06/2025 GA by U/S based upon: AC, BPD, Femur, HC GA by U/S 31 w + 6 d PETE by U/S: 07/02/2025 Assigned: based on ultrasound (GA), selected on 02/19/2025 Assigned GA (weeks days) 31 w + 0 d Assigned PETE: 07/08/2025 General Evaluation Cardiac activity Present. FHR 141 bpm. Presentation: cephalic Placenta: Placental site: posterior, previously documented away fromcervical os Umbilical cord: Cord vessels: 3 vessel cord. Insertion site: documented previously Amniotic fluid: Amount of AF: normal amount. MVP 7.1 cm Biometry Standard BPD 80.2 mm 32w 1d 76% Hadlock OFD 102.6 mm 33w 2d 94% Mary HC 290.4 mm 32w 0d 40% Hadlock Cerebellum tr 39.3 mm 31w 5d 56% Robert AC 289.2 mm 32w 6d 92% Hadlock Femur 57.7 mm 30w 1d 17% Hadlock Humerus 52.4 mm 30w 4d 40% Mary HC / AC 1.00 EFW 1,875 g 70% Hadlock EFW (lb) 4 lb EFW (oz) 2 oz EFW by: Hadlock ([id number]-FL) Extended Tibia 49.1 mm 29w 3d 17% Mary Denier Control Operator 4.3 mm CM 8.7 mm 87% Nicolaides Head / Face / Neck Cephalic index 0.78 36% Nicolaides Nasal bone: documented previously Extremities / Bony Struc FL / BPD 0.72 FL / HC 0.20 FL / AC 0.20 Other Structures FHR 141 bpm Anatomy The following structures appear normal: Head/Neck: Cranium. Lateral ventricles. Cavum septi pellucidi. Cerebellum. Cisterna magna. Parenchyma. Vermis. Heart/Thorax: Situs. Cardiac position. Cardiac axis. Cardiac size. Cardiac rhythm. Diaphragm. Abdomen: Abdom. wall. Stomach. Kidneys. Bladder. Spine: Cervical spine. Thoracic spine. Lumbar spine. Sacral spine. The following structures could not be adequately visualized: Heart / Thorax 4-chamber view. Ductal arch view. The following structures were documented previously: Head / Neck Choroid plexus. Midline falx. Neck. Nuchal fold. Face: Lips. Profile. Nose. Nasal bone. Maxilla. Mandible. Orbits. Heart / Thorax RVOT view. LVOT view. 3-vessel view. 5-viyvyc-ouqjqok view.Aortic arch view. Bicaval view. Interventricular septum. Great vessels. Right lung. Left lung. Abdomen Cord insertion. Right renal artery. Left renal artery.Genitals. Extremities/Skeleton: Right upper arm. Right forearm. Right hand. Leftupper arm. Left forearm. Left hand. Right upper leg. Right lower leg. Right foot. Left upper leg. Left lower leg. Leftfoot. Maternal Structures Uterus Visualized Cervix Suboptimal Approach - Transabdominal Right Ovary Not visualized Left Ovary Not visualized Cul de Sac Suboptimal Impression Single live intrauterine at 31w 0d. Normal growth. EFW measures at the 70%, AC measures at the 92%. Amniotic fluid MVP measures 7.1 cm. Recommendations Please see [facility] recommendations from prior clinical and/or ultrasoundreport documentation. anatomic survey is incomplete due to late gestational age andsuboptimal visualization. Patient is not scheduled to return for additional ultrasound. Please reschedule for specific concerns or indications. Subsequent follow up or other follow up as clinically determined byprimary OB provider unless otherwise specified by [facility]. Results forwarded to ordering provider so they can follow up with thepatient as necessary. Authorizing ProviderResult TypeResult StatusRobbi FERRAROCANCER [facility] [place] ORDERABLES Final Result * Unlisted Lab Test (02/19/2025)Specimen (Source)Anatomical Location / LateralityCollection Method / VolumeCollection TimeReceived TimeBlood (Arm) 02/19/2025 Narrative Authorizing ProviderResult TypeResult Madeline ALLEN BLOOD ORDERABLES Final ResultPerforming OrganizationAddressCity/State/ZIP CodePhone Number MANUALLY TRANSCRIBED RESULTS from Last 3 Months Insurance
--- OUTSIDE RECORDS SUMMARY | 2025-05-18 09:59 | XMS_ITS | Clinical Summary ---
Author Organization [facility] Address [address] [place] [address] Care Team Providers Care Network Cabler Name Role Phone Unavailable Primary Care Provider Unavailabl e Allergies Active AllergyReactionsCriticalityNoted DateCommentsAmoxicillinGI intolerance 5Amoxicillin-Pot ClavulanateNausea Only08/26/2023LevalbuterolHives 08/26/2023 Xopenex Levalbuterol Hcl08/26/2023 Other Reaction(s): Unknown Medications MedicationSigDispense QuantityRefillsLast FilledStart DateEnd DateStatus Lexapro 20 MG tablet Active MV-Min-Fe Fum-FA-DHA ( 1 PO) Take by mouthActive clindamycin (Cleocin T) 1 % lotion Indications:Acne vulgarisApply thin layer to face, once daily in the morning, 30 day supply 60 mL 1105Active magnesium oxide (Mag-Ox) 400 (240 Mg) MG tablet Take 400 mg by mouth Daily5Active Active Problems ProblemNoted DateDiagnosed Date19 weeks gestation of ([facility]) 02/16/2025Second trimester fetus ([facility])02/16/2025Estimated Date of QgwuiggeFnlraetpAmb46/12/2026ased on Ultrasound, HR 161 Encounters DateTypeDepartmentCare BgdwTomzfsruxmu27/22/2630Xulgwg92/09/2025 8:30 AM EST Routine [facility] [address] [place] [address] [place] [address] Amisha Laguerre NP Third trimester ([facility]); 30 weeks gestation of ([facility])5Bamboo flowsheet [facility] [address] [place] [address] Amisha Laguerre NP 04/20/2025Telephone [facility] [place] [facility] [address] [address] Robbi Alvarado, DO 04/19/2025 2:10 PM ESTRoutine [facility] [address] [address] Robbi Alvarado, DO Third trimester ([facility]); 28 weeks gestation of ([facility])04/19/2025amboo flowsheet [facility] [place] [facility] [address] [address] Robbi Alvarado, DO 04/13/2025linisync Result Encounter NOMS External Department Unsolicited Robbi Alvarado, DO 04/13/2025linisync Result Encounter NOMS External Department Unsolicited Robbi Alvarado, DO 04/13/2025linisync Result Encounter NOMS External Department Unsolicited Robbi Alvarado, DO 04/09/2025linisync Result Encounter NOMS External Department Unsolicited Robbi Alvarado, DO 04/06/2025bstract [facility] [place] [facility] [address] [facility] [place] [address] Oanh Vasquez MA 04/02/2025Orders Only [facility] [place] [address] [place] [address] Korin Talbert, DO 03/22/2025Telephone [facility] [address] [facility] [place] [address] Gunjan Lee MA 03/17/2025 11:30 AM EDTRoutine [facility] [address] [place] [phone] Robbi Alvarado, DO 23 weeks gestation of ([facility]); Second trimester fetus ([facility]); Diabetes mellitus screening; Leg cramps in ([facility])03/17/2025amboo flowsheet [facility] [place] [facility] [address] [place] [address] Robbi Alvarado, DO 03/04/2025Orders Only [facility] [place] [facility] [address] [place] [phone] Eunice Ramos LPN 5Clinisync Result Encounter NOMS External Department Unsolicited Robbi Alvarado, DO 02/19/2025bstract [facility] [place] [facility] [address] [facility] [facility] [address] Robbi Alvarado, DO 02/17/2025Telephone [facility] [address] [place] [address] [place] [phone] Robbi Alvarado, DO 02/16/2025 2:10 PM EDTRoutine [facility] [address] [facility] [place] [address] Robbi Alvarado, DO 19 weeks gestation of ([facility]); Second trimester fetus ([facility]); Screening, , for anatomic survey ([facility])5Clinisync Result Encounter NOMS External Department Unsolicited Robbi Alvarado, DO 02/16/2025External Result Encounter NOMS External Department Unsolicited Robbi Alvarado, DO 02/16/2025amboo flowsheet [facility] [place] [facility] [address] [facility] [phone] Robbi Alvarado, DO from Last 3 Months Social History Tobacco UseTypesPacks/DayYears UsedDateSmoking Tobacco: Unknown Tobacco Cessation:Counseling Given: Not Answered Estimated Date of ZomznrsxUgblgcojNgt77/12/2026ased on Ultrasound, HR 161Sex and Gender InformationValueDate RecordedSex Assigned at BirthFemale 10/18/2022 1:41 PM EDTLegal UvsNqjszp69/15/2023 7:24 PM EDTGender IdentityFemale 10/18/2022 1:41 PM EDTSexual WtrrfvfdyrpFmydwpzt10/25/2023 1:41 PM EDT Last Filed Vital Signs Vital SignReadingTime TakenCommentsBlood Astrtojh668/6205/04/2025 8:37 AM EST Pulse--Temperature--Respiratory Rate--Oxygen Saturation--Inhaled Oxygen Concentration--Shleyn58.8 kg (187 lb)05/04/2025 8:37 AM QGGIcewwx981.4 cm (5' 5.5 )10/08/2022 12:00 PM EDTBody Mass Index30.65010/08/2022 12:00 PM EDT Plan of Treatment DateTypeDepartmentCare Team (Latest Contact Info)Whvyfbhkaaz73/23/2025 11:40 AM ESTRoutine [facility] [place] [facility] [address] [place] [address] Robbi Alvarado DO [address] [place] [address] 10/21/2025 8:30 AM EDTOffice Visit [facility] [address] [place] [address] Mckenna Carlin MD [address] [place] [address] Health MaintenanceDue DateLast DoneCommentsInfluenza Vaccine (#1)01/25/2025 03/19/2023, 03/09/2022, 1Pneumococcal Vaccine: Pediatrics (0 to 5 Years) and At-Risk Patients (6 to 64 Years)Aged OutNo longer eligible based on patient's age to complete this topic Procedures Procedure NamePriorityDate/TimeAssociated DiagnosisCommentsPOCT URINALYSIS FMHSMJRQHpkeyfi69/09/2025 8:46 AM EST 30 weeks gestation of ([facility]) POCT URINALYSIS CSKXYXKXVngliie41/24/2025 2:24 PM EST 28 weeks gestation of ([facility]) US OB IDYMJJPK76/18/2025 6:59 PM EST US OB CERVICAL GRARGW2904/13/2025 6:59 PM EST [facility] UA (CLEAN/CATCH) BIOFUELS TECHNOLOGY DEVELOPMENT MANAGER/MICRO IF IND.Gyzshdd1804/13/2025 3:39 PM EST GLUCOSE 1 WAUGAiqiupg84/14/2025 10:04 AM EST ALL CBC WITH AUTO PVIPAsiramy34/14/2025 10:04 AM EST POCT URINALYSIS IFSBIOOJEwcjjgl47/22/2025 11:48 AM EDT 23 weeks gestation of ([facility]) Second trimester fetus ([facility]) Diabetes mellitus screening AFP, SERUM, OPEN SPINA UFQEGNAnlhmbi06/03/2025 9:48 AM EDT US OB 14+ WEEKS ANATOMY SCAN02/19/2025 11:16 AM EDT RECURRENT VAGINITIS (HTRX)Vldbmok7102/16/2025 3:42 PM EDT POCT URINALYSIS GPVSBGKRWzohwtn53/23/2025 3:01 PM EDT 19 weeks gestation of ([facility]) Second trimester fetus ([facility]) Screening, , for anatomic survey ([facility]) IGP,APTIMA HPV,AGE HTLXNkswuiw89/23/2025 2:30 PM EDT PAP ENEMOFjdnyls47/23/2025 12:00 AM EDTfrom Last 3 Months Results * POCT urinalysis dipstick manually resulted (05/04/2025 8:46 AM EST) Only the most recent of4 resultswithin the time period is included. ComponentValueRef [...] Location / LateralityCollection Method / VolumeCollection TimeReceived SkerBdimf22/09/2025 8:46 AM EST Narrative Authorizing ProviderResult TypeResult StatusAmisha Laguerre NPPOINT OF CARE TEST ENTER/EDIT ORDERABLESFinal Result * US OB PLACENTA (04/13/2025 6:59 PM EST)Anatomical RegionLateralityModality OtherSpecimen (Source)Anatomical Location / LateralityCollection Method / VolumeCollection TimeReceived Time04/13/2025 6:59 PM EST Narrative 04/13/2025 7:02 PM EST [facility] ?[address] ? [place] [address] ? Ultrasound Report ? Signed ? Patient: VIJAY ALBERTO ?MR#: [id number] ?? : 2000 ?Acct:[id number] ?? Age/Sex: 24 / F ?ADM Date: ?? Loc: [facility] ??250-1 ? Attending Dr: Robbi Alvarado D.O. ? Ordering Physician: Robbi Alvarado D.O. ?? Date of Service: 04/13/25 ?? Procedure(s): US OB placenta ?? Accession Number(s): [id number] ? cc: Robbi Alvarado D.O.; Bri Lee D.O. ? [facility] ? [address] ? [place] [address] ? Patient Name: ?? VIJAY ALBERTO ? MRN: [facility]:[id number] ? date: 2000 ?Sex: F ?? Assigned Patient Location: FB ?? Current Patient Location: ? Accession/Order Number: [id number] ?? Exam Date: 04/13/2025 ??17:00 ?Report Date: 04/13/2025 ??18:59 ? At the request of: ?? ROBBI ??CHRISTIANO ??DO ? Procedure: ??US OB cervical length ? Limited ultrasound obtained to assess the placenta and cervix ? Fetus is in cephalic presentation with longitudinal lie. ?? heart rate 131 ?? bpm. ? Cervical length is 4.2 cm. ??The cervical os is closed. ??Somatic motion ?? identified. ? Placenta contains hypoechoic area measuring 2.0 x 1.4 x 2.6 cm. ??Posterior ?? position of placenta No previa. ??No abruption. ? US/US OB placenta ?? IMPRESSION: Cervical length 4.2 cm. ??Cervical os closed. ??Incidental ?? hypoechoic area placenta measuring up to 2.6 cm. ??No placenta previa or ?? abruption. ? Impression dictated by: Michoacano Boles M.D. ??04/13/2025 6:59 PM ? Dictation Location: [facility]--20 ? Electronically authenticated by: [id number] ??Y ?? Date: 04/13/2025 ??18:59 ? Dictated By: ?Michoacano Boles D.O. ? Signed By: ?04/13/25 1902 ? DD/ 1859 ? TD/TT: ? Siderographist: Procedure Note Radiology, Radiologist, MD - 04/13/2025 [place] [address] Ultrasound Report Signed Patient: VIJAY ALBERTO MMR#: [id number] : 2000Acct:[id number] Age/Sex: M Date: Loc: [facility] 250-[address]: Robbi Alvarado D.O. Ordering Physician: Robbi Alvarado D.O. Date of Service: 04/13/25 Procedure(s): OB placenta Accession Number(s): [id number] cc: Robbi Alvarado D.O.; Bri Lee D.O. The [place] [id number] Patient Name: VIJAY ALBERTO MRN: [facility]:[id number] date: 2000 Sex: F Assigned Patient Location: [facility] Current Patient Location: Accession/Order Number: [id number] Exam Date: 04/13/2025 17:00 Report Date: 04/13/2025 18:59 At the request of: ROBBI ALVARADO DO Procedure: US OB cervical length Limited ultrasound obtained to assess the placenta and cervix Fetus is in cephalic presentation with longitudinal lie. heart jloo549 bpm. Cervical length is 4.2 cm. The cervical os is closed. Somatic motion identified. Placenta contains hypoechoic area measuring 2.0 x 1.4 x 2.6 cm. Posterior position of placenta No previa. No abruption. US/US OB placenta IMPRESSION: Cervical length 4.2 cm. Cervical os closed. Incidental hypoechoic area placenta measuring up to 2.6 cm. No placenta previa or abruption. Impression dictated by: Michoacano Boles M.D. 04/13/2025 6:59 PM Dictation Location: [place] [address] Electronically authenticated by: [id number] Y Date: 8:59 Dictated By: Michoacano Boles D.O. Signed By:04/13/25 190 DD/ 58 TD/TT: Siderographist: Authorizing ProviderResult TypeResult StatusCorey Christiano DOCLINISYNC IMAGINGFinal Result * US OB CERVICAL LENGTH (04/13/2025 6:59 PM EST)Anatomical RegionLaterality ModalityOtherSpecimen (Source)Anatomical Location / LateralityCollection Method / VolumeCollection TimeReceived Time04/13/2025 6:59 PM EST Narrative 04/13/2025 7:02 PM EST [facility] ?[address] ? [place] [address] ? Ultrasound Report ? Signed ? Patient: LUI,VIJAY M ?MR#: [id number] ?? : 2000 ?Acct:[id number] ?? Age/Sex: 24 / F ?ADM Date: ?? Loc: [facility] ??250-1 ? Attending : Robbisharad Alvarado D.O. ? Ordering Physician: Robbi Alvarado D.O. ?? Date of Service: 04/13/25 ?? Procedure(s): US OB cervical length ?? Accession Number(s): [id number] ? cc: Robbi Alvarado D.O.; Bri Lee D.O. ? [facility] ? [address] ? [place] [address] ? Patient Name: ?? VIJAY [place] ? MRN: [facility]:[id number] ? date: 2000 ?Sex: F ?? Assigned Patient Location: [facility] ?? Current Patient Location: ? Accession/Order Number: [id number] ?? Exam Date: 04/13/2025 ??17:00 ?Report Date: 04/13/2025 ??18:59 ? At the request of: ?? ROBBI ??CHRISTIANO ??DO ? Procedure: ??US OB cervical length ? Limited ultrasound obtained to assess the placenta and cervix ? Fetus is in cephalic presentation with longitudinal lie. ?? heart rate 131 ?? bpm. ? Cervical length is 4.2 cm. ??The cervical os is closed. ??Somatic motion ?? identified. ? Placenta contains hypoechoic area measuring 2.0 x 1.4 x 2.6 cm. ??Posterior ?? position of placenta No previa. ??No abruption. ? US/US OB cervical length ?? IMPRESSION: Cervical length 4.2 cm. ??Cervical os closed. ??Incidental ?? hypoechoic area placenta measuring up to 2.6 cm. ??No placenta previa or ?? abruption. ? Impression dictated by: Michoacano Boles M.D. ??04/13/2025 6:59 PM ? Dictation Location: [facility]-20 ? Electronically authenticated by: [id number] ??Y ?? Date: 04/13/2025 ??18:59 ? Dictated By: ?Michoacano Boles D.O. ? Signed By: ?04/13/25 1902 ? DD/ 1859 ? TD/TT: ? Siderographist: Procedure Note Radiology, Radiologist, MD - 04/13/[address] [address] Ultrasound Report Signed Patient: VIJAY ALBERTO MMR#: [id number] : 2000Acct:[id number] Age/Sex: 24 / FADM Date: Loc: [facility] 250-[address]: Robbi Alvarado D.O. Ordering Physician: Robbi Alvarado D.O. Date of Service: 04/13/25 Procedure(s): US OB cervical length Accession Number(s): [id number] cc: Robbi Alvarado D.O.; Bri Lee D.O. [place] [address] Patient Name: VIJAY ALBERTO MRN: [id number] date: 2000 Sex: F Assigned Patient Location: [facility] Current Patient Location: Accession/Order Number: [id number] Exam Date: 04/13/2025 17:00 Report Date: 04/13/2025 18:59 At the request of: ROBBI ALVARADO DO Procedure: US OB cervical length Limited ultrasound obtained to assess the placenta and cervix Fetus is in cephalic presentation with longitudinal lie. heart ajbo090 bpm. Cervical length is 4.2 cm. The cervical os is closed. Somatic motion identified. Placenta contains hypoechoic area measuring 2.0 x 1.4 x 2.6 cm. Posterior position of placenta No previa. No abruption. US/US OB cervical length IMPRESSION: Cervical length 4.2 cm. Cervical os closed. Incidental hypoechoic area placenta measuring up to 2.6 cm. No placenta previa or abruption. Impression dictated by: Michoacano Boles M.D. 04/13/2025 6:59 PM Dictation Location: [place] [address] Electronically authenticated by: [id number] Y Date: 8:59 Dictated By: Michoacano Boles D.O. Signed By:04/13/251901 DD/ 58 TD/TT: Siderographist: Authorizing ProviderResult TypeResult StatusCorey Christiano DOCLINISYNC IMAGINGFinal Result * (ABNORMAL) [facility] UA (CLEAN/CATCH) BIOFUELS TECHNOLOGY DEVELOPMENT MANAGER/MICRO IF IND. (04/13/2025 3:39 PM EST) ComponentValueRef RangeTest MethodAnalysis TimePerformed AtPathologist SignatureCOLOR URINELT. YELLOWYELLOWTBHCLARITY URINECLEARCLEARTBHSPECIFIC GRAVITY URINE>=1.030(A)1.005 - 1.025TBHPH URINE6.05.0 - 9.0TBHPROTEIN URINE NEGATIVENEG/TRACE mg/dLTBHGLUCOSE URINE UANEGATIVENEGATIVE mg/dLTBHBILIRUBIN URINENEGATIVENEGATIVETBHKETONES URINETRACE(A)NEGATIVE mg/dLTBHBLOOD URINE NEGATIVENEGATIVETBHNITRITE URINENEGATIVENEGATIVETBHUROBILINOGEN URINE0.20.2 - 1.0 EU/dLTBHLEUKOCYTE ESTERASE URINENEGATIVENEGATIVETBHURINE MICROSCOPIC INDICATEDNOTBHSpecimen (Source)Anatomical Location / LateralityCollection Method / VolumeCollection TimeReceived Time04/13/2025 3:39 PM EST04/13/2025 4:02 PM EST Narrative KADY - 04/13/2025 4:05 PM EST Authorizing ProviderResult TypeResult StatusCorey Christiano DOCLINISYNCFinal Result Performing OrganizationAddressCity/State/ZIP CodePhone Number PEARLISYNC TB * (ABNORMAL) GLUCOSE 1 HOUR (04/09/2025 10:04 AM EST)ComponentValueRef RangeTest MethodAnalysis TimePerformed AtPathologist SignatureGLUCOSE 1 FIKW286(H)<130 mg/dLTBHSpecimen (Source)Anatomical Location / LateralityCollection Method / VolumeCollection TimeReceived Time04/09/2025 10:04 AM EST04/09/2025 10:05 AM EST Narrative CLINISYNC - 04/09/2025 10:38 AM EST Authorizing ProviderResult TypeResult StatusCorey Christiano DOLAB BLOOD ORDERABLES Final ResultPerforming OrganizationAddressCity/State/ZIP CodePhone Number PEARLISYNC TBH * (ABNORMAL) ALL CBC WITH AUTO DIFF (04/09/2025 10:04 AM EST)ComponentValueRef RangeTest MethodAnalysis TimePerformed AtPathologist SignatureTBH WBC13.6(H) 4.0 - 11.0 10 3/uLTBHTBH RBC4.224.20 - 5.40 10 6/uLTBHTBH HGB12.412.0 - 16.0 g/dLTBHTBH HCT36.836.0 - 48.0 %TBHTBH MCV87.281.0 - 99.0 fLTBHTBH MCH29.426.7 - 34.0 pgTBHTBH MCHC33.729.9 - 35.2 g/dLTBHTBH RDW12.611.0 - 15.0 %TBHTBH PLT 068637 - 450 10 3/uLTBHTBH MPV9.79.5 - 13.5 fLTBHNEUTROPHILS PERCENT AUTO81.1 (H)43.0 - 75.0 %TBHLYMPHOCYTES PERCENT AUTO11.2(L)20.5 - 60.0 %TBHMONOCYTES PERCENT AUTO4.31.7 - 12.0 %TBHTBH EO %1.80.9 - 7.0 %TBHBASOPHILS PERCENT AUTO 0.30.2 - 2.0 %TBHIMMATURE GRANULOCYTES PCT AUTO1.3(H)0.0 - 0.5 %TBHNEUTROPHILS ABSOLUTE AUTO11.0(H)1.4 - 6.5 10 3/uLTBHLYMPHOCYTES ABSOLUTE AUTO1.51.2 - 3.8 10 3/uLTBHMONOCYTES ABSOLUTE AUTO0.60.3 - 0.8 10 3/uLTBHTBH EO #0.30.0 - 0.7 10 3/uLTBHBASOPHILS ABSOLUTE AUTO0.00.0 - 0.1 10 3/uLTBHIMMATURE GRANULOCYTES ABS AUTO0.18(H)0.00 - 0.03 10 3/uLTBHSpecimen (Source)Anatomical Location / LateralityCollection Method / VolumeCollection TimeReceived Time04/09/2025 10:04 AM EST04/09/2025 10:05 AM EST Narrative CLINISYNC - 04/09/2025 10:25 AM EST Authorizing ProviderResult TypeResult StatusCorey Christiano DOCLINISYNCFinal Result Performing OrganizationAddressCity/State/ZIP CodePhone Number CLINISYNC TB * AFP, SERUM, OPEN SPINA BIFIDA (02/26/2025 9:48 AM EDT)ComponentValueRef Range Test MethodAnalysis TimePerformed AtPathologist SignatureRESULTSReport.TBHTEST RESULTS:*Screen Negative*.TBHGEST. AGE ON COLLECTION DATE21.1. weeksTBHGESTAT. AGE BASED ONUltrasound.TBHComment: ?19:5 on 02/16/2025 Recalculations are not recommended when gestational dating by LMP and ultrasound are within 10 days. MATERNAL AGE AT EDD23.1. yrTBHRACECaucasian.QNJPJRBOZ257. lbsTBHINSULIN DEP DIABETESNo.TBHMULTIPLE GESTATIONNo.TBHAFP HXOAB492.4. ng/mLTBHAFP MOM1.77.TBH OSBR RISK 1 JE3778.TBHINTERPRETATIONComment.TBHComment: Interpretation: Screen Negative This result is screen [...] Customer Services to discuss available options. ??The [employer] recommends amniocentesis be offered to women age 35 and older. COMMENT:Comment.TBHComment: Barbara Moreno, Ph.D., [facility] Director References: Available Upon Request. Multiples Of Median Cutoffs ?For AFP Elevations Baird ?? 2.5 ? Black ?2.8 IDD ? 2.0 ? Twins ?4.5 ?Abbreviation Definitions IDD - Insulin Dep Diabetes OSBR - Open Spina Bifida Risk For further inquiries contact [employer] [facility] at [phone]. This test was developed and its performance characteristics determined by [employer]. It has not been cleared or approved by the Food and Drug Administration. Performed at: ??[facility] - [facility] [address] [place], [place] ??[id number] Biomedical Engineering Supervisor: Willow Mack [facility], Phone: ??[phone] Specimen (Source)Anatomical Location / LateralityCollection Method / Volume Collection TimeReceived Time02/26/2025 9:48 AM EDT1 9:50 AM EDT Narrative KADY - 03/02/2025 10:07 PM EDT ULTRASOUND [id number] 5 19 N 1 Y 173 White/ Authorizing ProviderResult TypeResult StatusCorey Christiano DOLAB BLOOD ORDERABLES Final ResultPerforming OrganizationAddressCity/State/ZIP CodePhone Number MARYANNENC TBH * US OB 14+ weeks anatomy scan (02/19/2025 11:16 AM EDT)Anatomical Region LateralityModalityBodyUltrasoundSpecimen (Source)Anatomical Location / LateralityCollection Method / VolumeCollection TimeReceived Time02/19/2025 11:16 AM EDT Narrative 02/19/2025 11:16 AM EDT THIS EXAM WAS PERFORMED AT [facility] NAME: ??LUI LINARES : 2000 SEX: F Accession Number: [id number] ORDERING PHYSICIAN: CAN CASTREJON REFERRING PHYSICIAN: ROBBI ALVARADO Coding Procedures ? 54142: Ultrasound, uterus, real time with image documentation, and maternal evaluation ? plus detailed anatomic examination, transabdominal approach;single or first gestation ? 54510: Ultrasound, uterus, real time with image documentation, transvaginal Indication Screening for Anatomic Survey, Screening for cervical length, Supervision of high risk -FOB with LIZZIE gene. History OB History ? 1. Para 0 ? C3P8Z9R7 Current Cell free DNA ?low risk analysis [...] (oz) ? 13 oz EFW by: ?Hadlock ([id number]-RY-[id number]-FL) Extended Tibia ??26.9 mm 19w 5d 41% Mary Graphic Illustrator ? 8.1 mm CM ? 4.4 mm [...] Mandible. Orbits. Heart/Thorax: 4-chamber view. 3-vessel view. 8-xzxelw-dgxidvr view. Situs. Cardiac position. Cardiac axis. Cardiac [...] primary OB provider unless otherwise specified by MFM. Results forwarded to ordering provider so they can follow up with the patient as necessary. The copy-to physician of this order is ROBBI Hernández The ordering physician of this order is CAN Palacio Procedure Note Radiology, Radiologist, MD - 02/19/2025 THIS EXAM WAS PERFORMED AT [facility] NAME: LUI LINARES : 2000 SEX: F Accession Number: [id number] ORDERING PHYSICIAN: CAN CASTREJON REFERRING PHYSICIAN: ROBBI ALVARADO Coding Procedures 99110: Ultrasound, uterus, real time with image documentation, and maternal evaluation plus detailed anatomic examination, transabdominalapproach;single or first gestation 54457: Ultrasound, uterus, real time with imagedocumentation, transvaginal Indication Screening for Anatomic Survey, Screening for cervical length, Supervisionof high risk -FOB with YLCAD gene. History OB History 1. Para 0 D8J4Q4G1 Current Cell free DNA low risk analysis [...] days) 20 w + 1 d Assigned PETE: 07/08/2025 General Evaluation Cardiac [...] EFW (oz) 13 oz EFW by: Hadlock (INI-NR-VX-FL) Extended Tibia 26.9 mm 19w 5d 41% Mary Graphic Illustrator 8.1 mm CM 4.4 mm 29% Nicolaides Nasal bone 6.1 mm 25% New.net Head / Face / Neck Cephalic index [...] Mandible. Orbits. Heart/Thorax: 4-chamber view. 3-vessel view. 9-ftmtou-kmdyeii view. Situs. Cardiac position. Cardiac axis. Cardiac [...] EDT)ComponentValue Ref RangeTest MethodAnalysis TimePerformed AtPathologist SignatureATOPOBIUM UQDREUX250.961 - 24.689 ppm02/17/2025 6:46 AM EDTHealthTrackRx at [facility] ATOPOBIUM VAGINAENot Jmdlqeos16.961 - 24.689 ppm02/17/2025 6:46 AM EDT [facility]St[facility] CenterBVAB 2,3 (BACTERIAL VAGINOSIS ASSOCIATED BACTERIA 2, 3); MOBILUNCUS IMG703.961 - 24.689 ppm02/17/2025 6:46 AM EDTHealthTrackRx at LabPortBVAB 2,3 (BACTERIAL VAGINOSIS ASSOCIATED BACTERIA 2, 3); MOBILUNCUS SPP Not Bpjhmajh03.961 - 24.689 ppm02/17/2025 6:46 AM EDTHealthTrackRx at LabPort JOSÉ [place] ALBICANS, PARAPSILOSIS, XQGAEZHCPO340.000 - 30.347 ppm02/17/2025 6:46 AM EDTHealthTrackRx at LabPortCANDIDA ALBICANS, PARAPSILOSIS, TROPICALISNot Cicxfazc32.000 - 30.347 ppm02/17/2025 6:46 AM EDTHealthTrackRx at [facility] JOSÉ [place] CMZMBGPD492.000 - 31.618 ppm02/17/2025 6:46 AM EDTHealthTrackRx at LabPortCANDIDA GLABRATANot Ngtjpbda58.000 - 31.618 ppm02/17/2025 6:46 AM EDT [facility]St[facility] CenterCANDIDA HKWPYM414.000 - 30.873 ppm02/17/2025 6:46 AM EDTHealthTrackRx at LabPortCANDIDA KRUSEINot Mvfyyzgp47.000 - 30.873 ppm 02/17/2025 6:46 AM EDTHealthTrackRx at LabPortCHLAMYDIA BMILUSRDCLR516.000 - 31.586 ppm02/17/2025 6:46 AM EDTHealthTrackRx at LabSt. [facility] Rehabilitation CenterCHLAMYDIA TRACHOMATIS Not Vxytwqjl91.000 - 31.586 ppm02/17/2025 6:46 AM EDTHealthTrackRx at [facility]Port GARDNERELLA SYMODEMFB688.961 - 24.689 ppm02/17/2025 6:46 AM EDTHealthTrackRx at [facility]sGARDNERELLA VAGINALISNot Wwsajjey84.961 - 24.689 ppm02/17/2025 6:46 AM EDTHealthTrackRx at LabSt. [facility] Pediatric Rehabilitation CenterMEGASPHAERA (TYPES 1, 2)27.34(A)19.961 - 24.689 ppm02/17/2025 6:46 AM EDTHealthTrackRx at [facility]mondsMEGASPHAERA (TYPES 1, 2) Detected(A)19.961 - 24.689 ppm02/17/2025 6:46 AM EDTHealthTrackRx at [facility] [place] RQHGLKOYMXF179.000 - 32.587 ppm02/17/2025 6:46 AM EDTHealthTrackRx at [facility]sNEISSERIA GONORRHOEAENot Fubaeymw46.000 - 32.587 ppm02/17/2025 6:46 AM EDTHealthTrackRx at LabPortTRICHOMONAS RFEQGACFA068.000 - 31.995 ppm 02/17/2025 6:46 AM EDTHealthTrackRx at LabPortTRICHOMONAS VAGINALISNot Qcqyvogm44.000 - 31.995 ppm02/17/2025 6:46 AM EDTHealthTrackRx at [facility]St[facility] MYCOPLASMA SLHOWERMPU693.961 - 24.689 ppm02/17/2025 6:46 AM EDTHealthTrackRx at [facility] EdmondsMYCOPLASMA GENITALIUMNot Ublxvpsg28.961 - 24.689 ppm02/17/2025 6:46 AM EDTHealthTrackRx at [facility], TET M17.33(A)23.000 - 27.500 ppm 02/17/2025 6:46 AM EDTHealthTrackRx at [facility], TET MDetected(A)23.000 - 27.500 ppm02/17/2025 6:46 AM EDTHealthTrackRx at [facility] EdmondsSpecimen (Source) Anatomical Location / LateralityCollection Method / VolumeCollection Time Received GyukMwuszp16/23/2025 3:42 PM EDT02/17/2025 1:56 AM EDT Narrative Authorizing ProviderResult TypeResult StatusCorey Christiano DOLAB BLOOD ORDERABLES Final ResultPerforming OrganizationAddressCity/State/[facility] CodePhone Number [facility] at [facility] [address] [address] * IGP,APTIMA HPV,AGE GDLN (02/16/2025 2:30 PM [...] at: 01 =G ?[facility] [address] ?? [address] [place] ??[phone] ?? Rachel Cooper MD, IGP, RFX APTIMA HPV ASCUNote.TBHComment: ?? TESTS ? RESULT ??FLAG ??UNITS ?REF RANGE ??LAB DIAGNOSIS: ?02 ?? NEGATIVE FOR INTRAEPITHELIAL LESION OR MALIGNANCY. Specimen adequacy: ?02 ?? Satisfactory for evaluation. ??Endocervical and/or squamous metaplastic ?? cells (endocervical component) are present. Performed by: ? 02 ?? Bryant Shaw Tile Setter (ASCP) . ? 02 Note: ? Note [...] High,A-Abnormal,AA-Critical Abnormal Performed at: 02 WB ?[facility] [place] ?? [address] [facility], [place] ??[address] ?? Rachel Cooper MD, Performed at: ??=G - [facility] [place] [address] [facility] [facility], [place], [place] ??[id number] Biomedical Engineering Supervisor: Rachel Cooper MD, Phone: ??[phone] Performed at: ??WB - [facility] [place] [address] [facility] [facility] [place], [place] ??[id number] Biomedical Engineering Supervisor: Rachel Cooper MD, Phone: ??[phone] Specimen (Source)Anatomical Location / LateralityCollection Method / [...]
--- OUTSIDE RECORDS SUMMARY | 2025-05-18 09:59 | XMS_ITS | Encounter Summary ---
Author Organization [facility] [employer] s tem Address [facility] [id number] [address] [place] [address] Care Team Providers Care Distribution Associate Name Role Phone Unavailable Primary Care Provider Unavailabl e Encounter Details DateTypeDepartmentCare Team (Latest Contact Info)Pdmlopshndl66/11/2025Travel Social History Tobacco UseTypesPacks/DayYears UsedDateSmoking Tobacco: NeverPassive [...] money to get more.Never True02/19/2025Estimated Date of YhbhdxlzDanggiarWde08/12/2026ased on UltrasoundSex and Gender InformationValueDate RecordedSex Assigned at BirthNot on fileLegal BmgZxbnyd55/05/2025 3:49 PM EDTGender IdentityNot on fileSexual OrientationNot on filedocumented as of this encounter Plan of Treatment Not on file documented as of this encounter Visit Diagnoses Not on filedocumented in this encounter
== END 2025-05-18 09:58 | disposition home or self-care (01) ==
LOC: US 09:57
PROVIDERS: PCP Student in an Organized Health Care Education/Training Program; Visit Provider Obstetrics & Gynecology
DX: O26.843 Uterine size-date discrepancy, third trimester (principal); Z3A.33 33 weeks gestation of pregnancy
CPT/HCPCS: 76816